=== PATIENT | female | born 1995 | race Caucasian/White ===

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

== ENCOUNTER 2017-01-05 10:00 | Emergency (ER) | payer MEDICAID ==
[2017-01-05 10:05] VITALS: BP 126/69
[2017-01-05] MEDS ORDERED: NORMAL SALINE 1000 ML 1,000 ML IV ONE (10:27)
[2017-01-05 10:53] LABS: ABSOLUTE BASOPHILS # (AUTO) 0.1 10^3/uL (0.0-0.2); ABSOLUTE EOSINOPHILS # (AUTO) 0.2 10^3/uL (0.0-0.6); ABSOLUTE LYMPHOCYTES (AUTO) 1.7 10^3/uL (0.5-4.7); ABSOLUTE MONOCYTES (AUTO) 1.2 10^3/uL (0.1-1.4); ABSOLUTE NEUT (AUTO) 14.1 10^3/uL (1.7-8.2); BASOPHILS % (AUTO) 0.8 % (0-2); EOSINOPHILS % (AUTO) 0.9 % (0-6); HEMATOCRIT 32.3 % (36.0-47.0); HEMOGLOBIN 10.3 g/dL (12.0-15.5); HGB HCT DIFFERENCE -1.4; LYMPHOCYTES % (AUTO) 9.7 % (13-45); MEAN CORPUSCULAR HEMOGLOBIN 22.9 pg (27.0-33.4); MEAN CORPUSCULAR HGB CONC 31.9 g/dL (32.0-36.0); MEAN CORPUSCULAR VOLUME 72 fl (80-97); MONOCYTES % (AUTO) 6.9 % (3-13); RED BLOOD COUNT 4.51 10^6/uL (3.72-5.28); RED CELL DISTRIBUTION WIDTH 18.2 % (11.5-14.0); SEGMENTED NEUTROPHILS % (AUTO) 81.7 % (42-78); WHITE BLOOD COUNT 17.2 10^3/uL (4.0-10.5)
--- NOTE | 2017-01-05 11:00 | ER Document Report ---
ED GI/ - General Chief Complaint: Abdominal Pain Stated Complaint: ABDOMINAL PAIN Time Seen by Provider: 01/05/17 10:21 Mode of Arrival: Ambulatory Information source: Patient Notes: Patient presents complaining of diarrhea and abdominal pain for the past month. Patient states she was recently diagnosed with Crohn's and ulcerative colitis this past month. Patient has seen her primary doctor and GI doctor for this complaint recently. Patient reports nausea with decreased oral intake. Patient denies any vomiting. Patient states she has been having about 5-7 diarrhea stools a day. Patient states she is due to have a colonoscopy in 2 weeks. Patient states that she saw her primary doctor on 12/30/2016 and was prescribed Flagyl and Bentyl, patient states that she does not like her primary doctor and does not trust him that she stopped these medications 2 days ago. Patient states that she ran out of her Percocet and her prednisone about a week ago and that is when her increased pain symptoms started. Patient states she does not keep up with her medications but just takes whatever her mother gives her. TRAVEL OUTSIDE OF THE [place] IN LAST 30 DAYS: No - HPI Patient complains to provider of: Abdominal pain, Diarrhea, Flank pain - off and on. No: Vaginal bleeding, Vaginal discharge, Vomiting Onset: Other - 1 month Timing/Duration: Worse Quality of pain: Sharp Pain Level: 5 Adult Front & Back Diagram: 1 - Abdominal pain Vaginal bleeding (Compared to normal period): None Associated symptoms: Diarrhea, Loss of appetite, Nausea. denies: Dizzy, Dysuria , Fever, Urinary hesitancy, Urinary frequency, Urinary retention, Vomiting Exacerbated by: Denies Relieved by: Denies Similar symptoms previously: Yes Recently seen / treated by doctor: Yes - Related Data Allergies/Adverse Reactions: latex Allergy (Mild, Verified 01/05/17 10:16) Hives methylphenidate [From Concerta] Allergy (Verified 01/05/17 11:42) Penicillins Allergy (Verified 01/05/17 10:16) sulfamethoxazole [From Bactrim] Allergy (Verified 01/05/17 11:42) trimethoprim [From Bactrim] Allergy (Verified 01/05/17 11:42) Past Medical History - General Information source: Patient Last Menstrual Period: 12/20/2016 - Social History Smoking Status: Current Every Day Smoker Chew tobacco use (# tins/day): No Smoking Education Provided: Yes - for at least 3 min Frequency of alcohol use: Occasional Drug Abuse: None 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 denies: Fever, Recent illness EENT: No symptoms reported Cardiovascular: No symptoms reported Respiratory: No symptoms reported. denies: Cough, Short of breath Gastrointestinal: Abdominal pain, Diarrhea, Nausea. denies: Vomiting, Constipation Genitourinary: Flank pain - off and on. denies: Dysuria Female Genitourinary: No symptoms reported. denies: , Vaginal discharge , Vaginal bleeding Musculoskeletal: No symptoms reported Skin: No symptoms reported Hematologic/Lymphatic: No symptoms reported Neurological/Psychological: No symptoms reported Physical Exam - Vital signs Vitals: Temp Pulse Resp BP Pulse Ox 98.1 F 94 H 16 126/69 H 98 01/05/17 10:02 01/05/17 10:02 01/05/17 10:02 01/05/17 10:02 01/05/17 10:02 - General General appearance: Appears well, Alert In distress: None - HEENT Head: Normocephalic, Atraumatic Eyes: Normal Conjunctiva: Normal Nasal: Normal Mouth/Lips: Normal Mucous membranes: Normal Neck: Normal, Supple - Respiratory Respiratory status: No respiratory distress Chest status: Nontender Breath sounds: Normal. No: Rales, Rhonchi, Stridor, Wheezing Chest palpation: Normal - Cardiovascular Rhythm: Regular Heart sounds: S1 appreciated, S2 appreciated Murmur: No - Abdominal Inspection: Normal Distension: No distension Bowel sounds: Normal Tenderness: Tender Organomegaly: No organomegaly Adult front & back diagram: 1 - tenderness with palpation - Genitourinary External exam: Normal Speculum exam: Vaginal discharge Vaginal bleeding: None Bimanuel exam: Normal. No: Cervical motion tender, Adnexal tenderness Notes: RN Emerald as standby - Back Back: Normal, Nontender. No: CVA tenderness - Extremities General upper extremity: Normal inspection, Normal ROM General lower extremity: Normal inspection, Normal ROM - Neurological Neuro grossly intact: Yes Cognition: Normal Rebecca Coma Scale Eye Opening: Spontaneous Rebecca Coma Scale Verbal: Oriented [place] Coma Scale Motor: Obeys Commands Rebecca Coma Scale Total: 15 - Psychological Associated symptoms: Normal affect, Normal mood - Skin Skin Temperature: Warm Skin Moisture: Dry Skin Color: Normal Course - Re-evaluation Re-evalutation: 01/05/17 12:[address] imaging at this time. Patient states she knows that she has an elevated white blood cell count has had an elevated white blood cell count 4 the past month. Patient states that she does not want to continue with the diagnostic evaluation at this time. Patient advised that no narcotic prescription will be written today. Patient advised that she would be given a prescription for Flagyl as well as antibiotic to treat her urinary tract infection. The patient has decided not to proceed with further recommended testing or treatment to determine the cause of her symptoms. The risk and alternatives to the recommendation were discussed the patient voiced understanding. The patient appears clinically to have the capacity to make this decision. The patient was instructed that they could return to the ER at any time to complete the testing or treatment. The patient has chosen to leave the facility against medical advice. The relevant issues have been reviewed and discussed with the patient and family at the bedside. At the time of this assessment there is no indication for involuntary commitment. The patient is alert, oriented, and able to express clearly their reasoning for not wanting to remain in the emergency department for further treatment. The patient is not clinically psychotic, intoxicated, and denies and suicidal ideation. The following recommendations/services were offered and refused: ct imaging The following risks were explained: , permanent disability, loss of function Clinical impression: Patient is competent to make decisions regarding the medical that is being offered. - Vital Signs Vital signs: Temp Pulse Resp BP Pulse Ox 98.1 F 94 H 16 126/69 H 98 01/05/17 10:02 01/05/17 10:02 01/05/17 10:02 01/05/17 10:02 01/05/17 10:02 - Laboratory Result Diagrams: 01/05/17 10:30 01/05/17 10:30 Laboratory results interpreted by me: 01/05/17 01/05/17 01/05/17 10:30 10:30 10:30 WBC 17.2 H Hgb 10.3 L Hct 32.3 L MCV 72 L MCH 22.9 L MCHC 31.9 L RDW 18.2 H Plt Count 643 H Seg Neutrophils % 81.7 H Lymphocytes % 9.7 L Absolute Neutrophils 14.1 H ESR 68 H Carbon Dioxide 21 L BUN 6 L C-Reactive Protein 133.2 H Urine Protein 100 H Urine Ketones TRACE H Urine Blood SMALL H Urine Bilirubin SMALL H Ur Leukocyte Esterase MODERATE H Urine Ascorbic Acid 20 H 01/05/17 12:04 Labs- Entire Visit 01/05/17 01/05/17 01/05/17 10:30 10:30 10:30 WBC 17.2 H RBC 4.51 Hgb 10.3 L Hct 32.3 L MCV 72 L MCH 22.9 L MCHC 31.9 L RDW 18.2 H Plt Count 643 H Seg Neutrophils % 81.7 H Lymphocytes % 9.7 L Monocytes % 6.9 Eosinophils % 0.9 Basophils % 0.8 Absolute Neutrophils 14.1 H Absolute Lymphocytes 1.7 Absolute Monocytes 1.2 Absolute Eosinophils 0.2 Absolute Basophils 0.1 ESR 68 H Sodium 139.6 Potassium 4.1 Chloride 106 Carbon Dioxide 21 L Anion Gap 13 BUN 6 L Creatinine 0.83 Est GFR ( Amer) > 60 Est GFR (Non-Af Amer) > 60 Glucose 86 Calcium 9.8 Total Bilirubin 0.4 Direct Bilirubin 0.4 Indirect Bilirubin Not Reportable Neonat Total Bilirubin Not Reportable AST 11 ALT 18 Alkaline Phosphatase 102 C-Reactive Protein 133.2 H Total Protein 7.7 Albumin 3.7 Lipase 26.2 Serum HCG, Qual NEGATIVE Urine Color Urine Appearance Urine pH Ur Specific [place] Urine Protein Urine Glucose (UA) Urine Ketones Urine Blood Urine Nitrite Urine Bilirubin Urine Urobilinogen Ur Leukocyte Esterase Urine WBC (Auto) Urine RBC (Auto) Squamous Epi Cells Auto U Non-Squamous Epis Auto Urine Mucus (Auto) Urine Ascorbic Acid Bacteria (Wet Prep) Trichomonas (Wet Prep) Vaginal WBC Vaginal Yeast 01/05/17 01/05/17 10:30 11:40 WBC RBC Hgb Hct MCV MCH MCHC RDW Plt Count Seg Neutrophils % Lymphocytes % Monocytes % Eosinophils % Basophils % Absolute Neutrophils Absolute Lymphocytes Absolute Monocytes Absolute Eosinophils Absolute Basophils ESR Sodium Potassium Chloride Carbon Dioxide Anion Gap BUN Creatinine Est GFR ( Amer) Est GFR (Non-Af Amer) Glucose Calcium Total Bilirubin Direct Bilirubin Indirect Bilirubin Neonat Total Bilirubin AST ALT Alkaline Phosphatase C-Reactive Protein Total Protein Albumin Lipase Serum HCG, Qual Urine Color YELLOW Urine Appearance CLOUDY Urine pH 5.0 Ur Specific [place] 1.031 Urine Protein 100 H Urine Glucose (UA) NEGATIVE Urine Ketones TRACE H Urine Blood SMALL H Urine Nitrite NEGATIVE Urine Bilirubin SMALL H Urine Urobilinogen NEGATIVE Ur Leukocyte Esterase MODERATE H Urine WBC (Auto) 36 Urine RBC (Auto) 11 Squamous Epi Cells Auto 42 U Non-Squamous Epis Auto 1 Urine Mucus (Auto) MANY Urine Ascorbic Acid 20 H Bacteria (Wet Prep) 3+ BACTERIA SEEN Trichomonas (Wet Prep) NO TRICHOMONAS SEEN Vaginal WBC RARE WBCS SEEN Vaginal Yeast YEAST SEEN Reviewed labs from patient's previous ER visit Discharge - Discharge Clinical Impression: Bacterial vaginosis UTI (urinary tract infection) Qualifiers: Urinary tract infection type: site unspecified Hematuria presence: with hematuria Qualified Code(s): N39.0 - Urinary tract infection, site not specified Abdominal pain Qualifiers: Abdominal location: unspecified location Qualified Code(s): R10.9 - Unspecified abdominal pain Leukocytosis Qualifiers: Leukocytosis type: unspecified Qualified Code(s): D72.829 - Elevated white blood cell count, unspecified Disposition: AGAINST MEDICAL ADVICE Instructions: Abdominal Pain ([facility]), Nitrofurantoin ([facility]), Urinary Tract Infection ([facility]), Metronidazole ([facility]) Additional Instructions: Return immediately for any new or worsening symptoms, or if you would like to continue your diagnostic evaluation Followup with your primary care provider and third mate, call tomorrow to make a followup appointment Prescriptions: Metronidazole [Flagyl 500 mg Tablet] 500 mg PO BID #14 tablet Nitrofurantoin/Nitrofuran Mac [Macrobid 100 mg Capsule] 100 mg PO BID #10 capsule Forms: Return to Work Referrals: MAY ALY MD [NO LOCAL MD] - Follow up tomorrow
[2017-01-05 11:04] LABS: APPEARANCE,URINE CLOUDY; BILIRUBIN,URINE SMALL (NEGATIVE); GLUCOSE, URINE NEGATIVE (NEGATIVE); KETONES,URINE TRACE mg/dL (NEGATIVE); LEUKOCYTE ESTERASE,URINE MODERATE (NEGATIVE); NITRITE,URINE NEGATIVE (NEGATIVE); PROTEIN,URINE 100 mg/dL (NEGATIVE); URINE SPECIFIC GRAVITY 1.031; UROBILINOGEN,URINE NEGATIVE mg/dL (<2.0)
[2017-01-05 11:11] LABS: ALANINE AMINOTRANSFERASE 18 U/L (5-35); ALBUMIN 3.7 g/dL (3.7-5.6); ALKALINE PHOSPHATASE 102 U/L (50-135); ANION GAP 13 (5-19); ASPARTATE AMINO TRANSFERASE 11 U/L (5-30); BILIRUBIN,DIRECT 0.4 mg/dL (0.0-0.4); BILIRUBIN,TOTAL 0.4 mg/dL (0.2-1.3); BLOOD UREA NITROGEN 6 mg/dL (7-20); CALCIUM 9.8 mg/dL (8.4-10.2); CARBON DIOXIDE 21 mmol/L (22-30); CHLORIDE 106 mmol/L (98-107); CREATININE RESULT 0.83 mg/dL (0.52-1.25); GLUCOSE 86 mg/dL (75-110); LIPASE 26.2 U/L (23-300); POTASSIUM 4.1 mmol/L (3.6-5.0); SODIUM 139.6 mmol/L (137-145); TOTAL PROTEIN 7.7 g/dL (6.3-8.2)
[2017-01-05] MEDS ORDERED: NORMAL SALINE 1000 ML 1,000 ML IV PRN (11:12)
[2017-01-05] MEDS ORDERED: OXYCODONE-ACETAMINOPHEN 5-325 MG TABLET PO ONE (11:20)
[2017-01-05 11:27] LABS: C-REACTIVE PROTEIN 133.2 mg/L (<10.0)
[2017-01-05 11:33] LABS: ERYTHROCYTE SEDIMENTATION RATE 68 mm/hr (0-20)
[2017-01-05 13:24] LABS: CHLAM PCR NOT DETECTED (NOT DETECT)
== END 2017-01-05 13:15 | disposition left against medical advice (07) ==
LOC: ER 10:00
DX: N39.0 Urinary tract infection, site not specified (principal); R31.9 Hematuria, unspecified; K51.90 Ulcerative colitis, unspecified, without complications; T37.3X6A Underdosing of other antiprotozoal drugs, initial encounter; T44.3X6A Underdosing of other parasympatholytics [anticholinergics and antimuscarinics] and spasmolytics, initial encounter; Z91.128 Patient's intentional underdosing of medication regimen for other reason; Z91.14 Patient's other noncompliance with medication regimen; D72.829 Elevated white blood cell count, unspecified; N76.0 Acute vaginitis; B96.89 Other specified bacterial agents as the cause of diseases classified elsewhere; J45.909 Unspecified asthma, uncomplicated; F17.200 Nicotine dependence, unspecified, uncomplicated; Z91.040 Latex allergy status; Z88.0 Allergy status to penicillin; Z88.1 Allergy status to other antibiotic agents; Z88.8 Allergy status to other drugs, medicaments and biological substances
CPT/HCPCS: 99284; 36415; 87086; 87210; 83690; 84703; 85025; 85652; 86140; 87088; 80053; 81001; 87491; 87591; J7030

== ENCOUNTER 2017-01-12 01:13 | Emergency (ER) | payer MEDICAID ==
--- NOTE | 2017-01-12 02:22 | ER Document Report ---
HPI - HPI Pain Level: 3 Notes: Patient is a 21-year-old female who presents to the ED for the 3rd time in the last month for the same complaint. Pt is c/o abdominal pain generalized with n/v /d since her diagnosis of Crohn's and UC approx 1mo ago. Pt states that she was seen by Dr. Herrera (GI) and has an endoscopy/colonoscopy scheduled in 2 weeks. Pt states that she returned today to get out of pain. Pt was eval'd last month and declined the CT scan and signed out AMA. Pt was sent home with flagyl and macrobid per patient for BV and UTI which she is still taking/ finishing. Pt denies any melena, hematochezia, hematemesis. Pt states that she does have a dec appetite with one episode of vomiting today. Pt has not had any acute changes since her last visit. her pain is described as burning, cramping, sharp, dull, and an ache. Pt is still having BM's routinely. Denies any headache, fever, URI, sore throat, chest pain, palpitations, syncope, cough , shortness of breath, wheeze, dyspnea, urinary retention, dysuria, hematuria, vaginal discharge/odor, loss of control of bowel or bladder, numbness/tingling, saddle anesthesia, muscle paralysis/weakness, or rash. + smoking, denies elicit drug use. - ROS Notes: REVIEW OF SYSTEMS: CONSTITUTIONAL : Denies fever, chills, or sweats. Denies recent illness. EENT: Denies eye, ear, throat, or mouth pain or symptoms. Denies nasal or sinus congestion or discharge. Denies throat, tongue, or mouth swelling or difficulty swallowing. CARDIOVASCULAR: Denies chest pain. Denies palpitations or racing or irregular heart beat. Denies ankle edema. RESPIRATORY: Denies cough, cold, or chest congestion. Denies shortness of breath, difficulty breathing, or wheezing. GASTROINTESTINAL: see hpi GENITOURINARY: Denies difficulty urinating, painful urination, burning, frequency, blood in urine, or discharge. FEMALE GENITOURINARY: Denies vaginal bleeding, heavy or abnormal periods, irregular periods. Denies vaginal discharge or odor. MUSCULOSKELETAL: Denies back or neck pain or stiffness. Denies joint pain or swelling. SKIN: Denies rash, lesions or sores. NEUROLOGICAL: Denies confusion or altered mental status. Denies passing out or loss of consciousness. Denies dizziness or lightheadedness. Denies headache. Denies weakness or paralysis or loss of use of either side. Denies problems with gait or speech. Denies sensory loss, numbness, or tingling. ALL OTHER SYSTEMS REVIEWED AND NEGATIVE. Dictation was performed using [employer] voice recognition software - REPRODUCTIVE Reproductive: DENIES: : - DERM Skin Color: [place] Past Medical History - Social History Smoking Status: Current Every Day Smoker Family History: Reviewed & Not Pertinent Pulmonary Medical History: Reports: Hx Asthma Renal/ Medical History: Denies: Hx Peritoneal Dialysis GI Medical History: Reports: Hx Crohn's Disease, Hx Ulcerative Colitis Psychiatric Medical History: Reports: Hx Anxiety, Hx Bipolar Disorder, Hx Depression - anxiety Past Surgical History: Reports: Hx Oral Surgery - wisdom, Hx Tonsillectomy - Immunizations Immunizations up to date: Yes Hx Diphtheria, Pertussis, Tetanus Vaccination: Yes Vertical Provider Document - CONSTITUTIONAL Agree With Documented VS: Yes Notes: PHYSICAL EXAMINATION: GENERAL: Well-appearing, well-nourished and in no acute distress. Pt was visualized smiling and comfortable on the exam table looking at her phone and joking with her bf. HEAD: Atraumatic, normocephalic. EYES: Pupils equal round and reactive to light, extraocular movements intact, sclera anicteric, conjunctiva are normal. ENT: EAC clear b/l. TM's intact b/l without erythema, fluid, or perforation. Nares patent and without discharge. oropharynx clear without exudates. No tonsilar hypertrophy or erythema. Moist mucous membranes. No sinus tenderness. NECK: Normal range of motion, supple without lymphadenopathy. No rigidity/ meningismus. LUNGS: Breath sounds clear to auscultation bilaterally and equal. No wheezes rales or rhonchi. HEART: Regular rate and rhythm without murmurs, rubs, gallops. ABDOMEN: Soft, nondistended abdomen. No guarding, no rebound. No masses appreciated. Normal bowel sounds present. No CVA tenderness bilaterally. + tenderness to the RUQ, epigastrum and lower abd b/l. Musculoskeletal: LE's b/l: FROM to passive/active. Strength 5+/5. Extremities: No cyanosis, clubbing, or edema b/l. Peripheral pulses 2+. Capillary refill less than 3 seconds. NEUROLOGICAL: Normal speech, normal gait. Normal sensory, motor exams PSYCH: Normal mood, normal affect. SKIN: Warm, Dry, normal turgor, no rashes or lesions noted. - INFECTION CONTROL TRAVEL OUTSIDE OF THE [place] IN LAST 30 DAYS: No - RESPIRATORY O2 Sat by Pulse Oximetry: 100 Course - Re-evaluation Re-evalutation: 01/12/17 04:18 Patient is an afebrile, well-hydrated, 21-year-old female who presents the ED with a Crohn's flare. Vitals are stable. PE otherwise unremarkable at this time. CBC with a white count of 17 and mild anemia. CMP showed mild hypokalemia. Urinalysis unremarkable. CT of the abdomen showed bowel wall thickening and evidence of acute Crohn's flare without other acute emergent processes. Low suspicion/risk for acute appendicitis, bowel obstruction, acute cholecystitis, acute cholangitis, perforated diverticulitis, incarcerated hernia , pancreatitis, perforated ulcer, peritonitis, sepsis, pelvic inflammatory disease, ectopic , tubo-ovarian abscess, ovarian torsion, or other systemic emergent condition at this time. Patient is aware that her condition can change from initial presentation and she needs to monitor symptoms closely and seek medical attention if any acute changes. 1L NS given today. KCl 20meq given PO. Toradol 15mg given IV. Pt is already taking bentyl at home. I will place her on a steroid taper dose. Pt is scheduled for a endo/colonoscopy in the next 1-1.5 weeks. Conservative measures otherwise for symptoms. Recheck with your PCM in 2-3 days. Call your GI provider on Friday and let him know about the acute flare. Return to the ED with any worsening/concerning symptoms otherwise as reviewed in discharge. Patient is in agreement. Reviewed case with Dr. Canchola who is in agreement with discharge/plan. - Vital Signs Vital signs: Temp Pulse Resp BP Pulse Ox 98.5 F 104 H 18 123/75 100 01/12/17 01:18 01/12/17 01:18 01/12/17 01:18 01/12/17 01:18 01/12/17 01:18 - Laboratory Result Diagrams: 01/12/17 02:15 01/12/17 02:15 Discharge - Discharge Clinical Impression: Abdominal pain Qualifiers: Abdominal location: generalized Qualified Code(s): R10.84 - Generalized abdominal pain Crohns disease Qualifiers: Gastrointestinal tract location: unspecified location Digestive disease complication type: unspecified complication Qualified Code(s): K50.919 - Crohn' s disease, unspecified, with unspecified complications Condition: Stable Disposition: HOME, SELF-CARE Instructions: Abdominal Pain ([facility]), Antispasmodics ([facility]), Crohn's Disease ([facility]) , Low-Fat Diet ([facility]) Additional Instructions: Maintain adequate fluid/food intake Take medications as directed Monitor for any worsening symptoms Let your GI doctor know that you had/have an active flare up of your Crohn's prior to your scheduled endo/colonoscopy Recheck with your [facility] Spotter in 2-3 days Recheck with your PCM in 2-3 days Return to the ED with any worsening symptoms and/or development of fever, headache, chest pain, palpitations, syncope, shortness of breath, trouble breathing, abdominal pain, n/v/d, blood in stool/urine, or other worsening symptoms that are concerning to you. Prescriptions: Ondansetron [Zofran Odt 4 mg Tablet] 1 - 2 tab PO Q4H PRN #15 tab.rapdis PRN Reason: For Nausea/Vomiting Prednisone [Deltasone 10 mg Tablet] 10 mg PO ASDIR PRN #21 tablet PRN Reason: Forms: Smoking Cessation Education Referrals: MAY HERRERA MD [NO LOCAL MD] - 01/13/17 [facility] [Provider Group] - 01/13/17
[2017-01-12] MEDS ORDERED: NORMAL SALINE 1000 ML 1,000 ML IV ONE (02:23)
[2017-01-12 02:28] LABS: ABSOLUTE BASOPHILS # (AUTO) 0.1 10^3/uL (0.0-0.2); ABSOLUTE EOSINOPHILS # (AUTO) 0.1 10^3/uL (0.0-0.6); ABSOLUTE LYMPHOCYTES (AUTO) 3.3 10^3/uL (0.5-4.7); ABSOLUTE MONOCYTES (AUTO) 1.5 10^3/uL (0.1-1.4); ABSOLUTE NEUT (AUTO) 12.1 10^3/uL (1.7-8.2); BASOPHILS % (AUTO) 0.7 % (0-2); EOSINOPHILS % (AUTO) 0.8 % (0-6); HEMATOCRIT 29.8 % (36.0-47.0); HEMOGLOBIN 9.6 g/dL (12.0-15.5); LYMPHOCYTES % (AUTO) 19.2 % (13-45); MEAN CORPUSCULAR HEMOGLOBIN 22.9 pg (27.0-33.4); MEAN CORPUSCULAR HGB CONC 32.3 g/dL (32.0-36.0); MEAN CORPUSCULAR VOLUME 71 fl (80-97); MONOCYTES % (AUTO) 8.5 % (3-13); RED BLOOD COUNT 4.21 10^6/uL (3.72-5.28); RED CELL DISTRIBUTION WIDTH 17.6 % (11.5-14.0); SEGMENTED NEUTROPHILS % (AUTO) 70.8 % (42-78); WHITE BLOOD COUNT 17.1 10^3/uL (4.0-10.5)
[2017-01-12] MEDS ORDERED: ONDANSETRON HCL INJ/PF 4 MG/2 ML SDV IV ONE (02:31)
[2017-01-12 02:32] LABS: APPEARANCE,URINE CLEAR; BILIRUBIN,URINE NEGATIVE (NEGATIVE); GLUCOSE, URINE NEGATIVE (NEGATIVE); KETONES,URINE 20 mg/dL (NEGATIVE); LEUKOCYTE ESTERASE,URINE SMALL (NEGATIVE); NITRITE,URINE NEGATIVE (NEGATIVE); PROTEIN,URINE 30 mg/dL (NEGATIVE); URINE SPECIFIC GRAVITY 1.021
[2017-01-12] MEDS ORDERED: NORMAL SALINE 1000 ML 1,000 ML IV PRN (02:34)
[2017-01-12 02:38] LABS: ALANINE AMINOTRANSFERASE 23 U/L (5-35); ALBUMIN 3.5 g/dL (3.7-5.6); ALKALINE PHOSPHATASE 102 U/L (50-135); ANION GAP 12 (5-19); ASPARTATE AMINO TRANSFERASE 8 U/L (5-30); BILIRUBIN,DIRECT 0.4 mg/dL (0.0-0.4); BILIRUBIN,TOTAL 0.4 mg/dL (0.2-1.3); BLOOD UREA NITROGEN 6 mg/dL (7-20); CALCIUM 9.1 mg/dL (8.4-10.2); CARBON DIOXIDE 21 mmol/L (22-30); CHLORIDE 105 mmol/L (98-107); CREATININE RESULT 0.72 mg/dL (0.52-1.25); GLUCOSE 89 mg/dL (75-110); LIPASE 46.5 U/L (23-300); POTASSIUM 3.3 mmol/L (3.6-5.0); SODIUM 137.9 mmol/L (137-145); TOTAL PROTEIN 7.5 g/dL (6.3-8.2)
--- NOTE | 2017-01-12 03:49 | RADIOLOGY REPORT (SQ) ---
EXAM DESCRIPTION: CT ABD/PELVIS WITH IV ONLY COMPLETED DATE/TIME: 01/12/2017 3:29 am REASON FOR STUDY: abdominal pain . Nausea, vomiting, diarrhea x1 month, worse x1 week. History of Crohn's and ulcerative colitis. COMPARISON: None. TECHNIQUE: CT scan of the abdomen and pelvis performed using helical scanning technique with dynamic intravenous contrast injection. No oral contrast. Images reviewed with lung, soft tissue, and bone windows. Reconstructed coronal and sagittal MPR images reviewed. Delayed images for evaluation of the urinary system also acquired. All images stored on PACS. All CT scanners at this facility use dose modulation, iterative reconstruction, and/or weight based d osing when appropriate to reduce radiation dose to as low as reasonably achievable (ALARA). [facility]: Dose Right [facility]: CareDose [facility]: Dose Right [facility]: Teradose 4D [facility]: Hastify CONTRAST TYPE AND DOSE: contrast/concentration: Isovue 370.00 mg/ml; Total Contrast Delivered: 76.0 ml; Total Saline Delivered: 51.0 ml RENAL FUNCTION: Creatinine 0.72 RADIATION DOSE: Up-to-date CT equipment and radiation dose reduction techniques were employed. CTDIv ol: 6.0 - 8.3 mGy. DLP: 725 mGy-cm.. LIMITATIONS: None. FINDINGS: LOWER CHEST: No consolidation or pleural effusion. LIVER: Normal size. No dilated ducts. SPLEEN: Normal size. PANCREAS: No significant calcifications. No adjacent inflammation or peripancreatic fluid collections . Pancreatic duct not dilated. GALLBLADDER: Present. ADRENAL GLANDS: No significant masses or asymmetry. RIGHT KIDNEY AND URETER: No solid masses. No significant calcifications. No hydronephrosis or hyd roureter. LEFT KIDNEY AND URETER: No solid masses. No significant calcifications. No hydronephrosis or hydr oureter. AORTA AND VESSELS: No abdominal aortic aneurysm or CT evidence of acute dissection. There is a retro aortic left renal vein. RETROPERITONEUM: No retroperitoneal hemorrhage or masses. BOWEL AND PERITONEAL CAVITY: The stomach is collapsed. No dilated bowel loops. There is wall enhanc ement of the terminal ileum. There is diffuse wall thickening and enhancement of the colon. Enlarge d mesenteric lymph globe in the right lower quadrant measuring up to 14 mm in short axis. APPENDIX: Normal. PELVIS: The urinary bladder is partially distended. The uterus is present. No free fluid. ABDOMINAL WALL: No hernias. BONES: No acute findings. IMPRESSION: Wall enhancement of the terminal ileum with diffuse wall thickening and enhancement of t he colon, suggestive of terminal ileitis and colitis, probably due to active Crohn's disease. Evalua tion with colonoscopy may be worthwhile. Mesenteric adenopathy in the right lower quadrant, may be reactive. TECHNICAL DOCUMENTATION: JOB ID: [id number] OR-64 Quality ID # [id number]: Final reports with documentation of one or more dose reduction techniques (e.g., Au tomated exposure control, adjustment of the mA and/or kV according to patient size, use of iterative reconstruction technique) 2010 [email or web address]- All Rights Reserved
[2017-01-12] MEDS ORDERED: POTASSIUM CHLORIDE 20 MEQ/15 ML UDCUP PO ONE (04:09)
[2017-01-12] MEDS ORDERED: KETOROLAC TROMETHAMINE INJ/PF 30 MG/1 ML SDV IV ONE (04:09)
[2017-01-12] MEDS ORDERED: LORAZEPAM INJ 2 MG/1 ML VIAL IV ONE (04:13)
[2017-01-12 04:53] VITALS: BP 128/72
== END 2017-01-12 04:51 | disposition home or self-care (01) ==
LOC: ER 01:13
DX: K50.919 Crohn's disease, unspecified, with unspecified complications (principal); N39.0 Urinary tract infection, site not specified; N76.0 Acute vaginitis; B96.89 Other specified bacterial agents as the cause of diseases classified elsewhere; D64.9 Anemia, unspecified; E87.6 Hypokalemia; R11.2 Nausea with vomiting, unspecified; R19.7 Diarrhea, unspecified; R10.84 Generalized abdominal pain; R63.0 Anorexia; J45.909 Unspecified asthma, uncomplicated; F17.200 Nicotine dependence, unspecified, uncomplicated; Z79.899 Other long term (current) drug therapy
CPT/HCPCS: 99284; 96361; 96374; 96375; 36415; 83690; 85025; 81025; 80053; 81001; 74177; J1885; J3490; J2405; J7030

== ENCOUNTER 2017-02-09 21:47 | Emergency (ER) | payer MEDICAID ==
[2017-02-09 22:18] LABS: ABSOLUTE BASOPHILS # (AUTO) 0.1 10^3/uL (0.0-0.2); ABSOLUTE EOSINOPHILS # (AUTO) 0.1 10^3/uL (0.0-0.6); ABSOLUTE MONOCYTES (AUTO) 1.1 10^3/uL (0.1-1.4); ABSOLUTE NEUT (AUTO) 9.9 10^3/uL (1.7-8.2); BASOPHILS % (AUTO) 0.8 % (0-2); HEMATOCRIT 33.3 % (36.0-47.0); HEMOGLOBIN 10.9 g/dL (12.0-15.5); HGB HCT DIFFERENCE -0.6; LYMPHOCYTES % (AUTO) 21.1 % (13-45); MEAN CORPUSCULAR HEMOGLOBIN 23.2 pg (27.0-33.4); MEAN CORPUSCULAR HGB CONC 32.7 g/dL (32.0-36.0); MEAN CORPUSCULAR VOLUME 71 fl (80-97); MONOCYTES % (AUTO) 7.4 % (3-13); RED CELL DISTRIBUTION WIDTH 19.9 % (11.5-14.0); SEGMENTED NEUTROPHILS % (AUTO) 69.7 % (42-78); WHITE BLOOD COUNT 14.2 10^3/uL (4.0-10.5)
[2017-02-09 22:27] LABS: ALANINE AMINOTRANSFERASE 16 U/L (5-35); ALBUMIN 3.6 g/dL (3.7-5.6); ALKALINE PHOSPHATASE 94 U/L (50-135); ASPARTATE AMINO TRANSFERASE 12 U/L (5-30); BILIRUBIN,DIRECT 0.3 mg/dL (0.0-0.4); BILIRUBIN,TOTAL 0.3 mg/dL (0.2-1.3); BLOOD UREA NITROGEN 8 mg/dL (7-20); CALCIUM 9.6 mg/dL (8.4-10.2); CARBON DIOXIDE 23 mmol/L (22-30); CREATININE RESULT 0.66 mg/dL (0.52-1.25); GLUCOSE 89 mg/dL (75-110); LIPASE 686.2 U/L (23-300); POTASSIUM 4.1 mmol/L (3.6-5.0); SODIUM 139.8 mmol/L (137-145); TOTAL PROTEIN 7.7 g/dL (6.3-8.2)
[2017-02-09 22:28] LABS: ANION GAP 12 (5-19); CHLORIDE 105 mmol/L (98-107)
[2017-02-09 22:42] LABS: APPEARANCE,URINE CLOUDY; BILIRUBIN,URINE MODERATE (NEGATIVE); CALCIUM OXALATE CRYSTALS,URINE MODERATE /HPF; GLUCOSE, URINE NEGATIVE (NEGATIVE); KETONES,URINE TRACE mg/dL (NEGATIVE); LEUKOCYTE ESTERASE,URINE TRACE (NEGATIVE); NITRITE,URINE NEGATIVE (NEGATIVE); PROTEIN,URINE 30 mg/dL (NEGATIVE); URINE SPECIFIC GRAVITY 1.055; UROBILINOGEN,URINE NEGATIVE mg/dL (<2.0)
[2017-02-09] MEDS ORDERED: ONDANSETRON HCL INJ/PF 4 MG/2 ML SDV IV ONE (23:02)
[2017-02-09] MEDS ORDERED: NORMAL SALINE 1000 ML 1,000 ML IV PRN (23:02)
--- NOTE | 2017-02-09 23:02 | ER Document Report ---
ED GI/ - General Chief Complaint: Abdominal Pain Stated Complaint: ABDOMINAL PAIN Time Seen by Provider: 02/09/17 22:37 Mode of Arrival: Ambulatory Information source: Patient TRAVEL OUTSIDE OF THE [place] IN LAST 30 DAYS: No - HPI Patient complains to provider of: Abdominal pain Onset: Yesterday Timing/Duration: Gradual, Persistent, Worse Quality of pain: Achy Severity at maximum: Moderate Location: Other - Diffuse Associated symptoms: Diarrhea, Nausea, Vomiting Similar symptoms previously: Yes Recently seen / treated by doctor: Yes Notes: 02/10/17 05:07 Patient is a 21-year-old female presenting to the emergency room complaining of nausea, vomiting and diarrhea, states her pain started yesterday after she ran out of her pain medication which is oxycodone 5 mg, she reports a recent diagnosis of Crohn's disease after having an upper and lower endoscopy by Dr. Herrera of [facility], she reports that she is supposed to be started on Humira Friday for this, and had pain medication until she follows up with her credit card control clerk on Friday unfortunately she ran out of it yesterday which is when her pain began - Related Data Allergies/Adverse Reactions: latex Allergy (Mild, Verified 02/09/17 21:49) Hives methylphenidate [From Concerta] Allergy (Verified 02/09/17 21:49) Penicillins Allergy (Verified 02/09/17 21:49) sulfamethoxazole [From Bactrim] Allergy (Verified 02/09/17 21:49) trimethoprim [From Bactrim] Allergy (Verified 02/09/17 21:49) Past Medical History - General Information source: Patient - Social History Smoking Status: Current Every Day Smoker Family History: Reviewed & Not Pertinent Patient has suicidal ideation: No Patient has homicidal ideation: No Pulmonary Medical History: Reports: Hx Asthma Renal/ Medical History: Denies: Hx Peritoneal Dialysis GI Medical History: Reports: Hx Crohn's Disease, Hx Ulcerative Colitis Psychiatric Medical History: Reports: Hx Anxiety, Hx Bipolar Disorder, Hx Depression - anxiety Past Surgical History: Reports: Hx Oral Surgery - wisdom, Hx Tonsillectomy - Immunizations Immunizations up to date: Yes Hx Diphtheria, Pertussis, Tetanus Vaccination: Yes Review of Systems - Review of Systems Constitutional: No symptoms reported EENT: No symptoms reported Cardiovascular: No symptoms reported Respiratory: No symptoms reported Gastrointestinal: See HPI Genitourinary: No symptoms reported Female Genitourinary: No symptoms reported Musculoskeletal: No symptoms reported Skin: No symptoms reported Hematologic/Lymphatic: No symptoms reported Neurological/Psychological: No symptoms reported -: Yes All other systems reviewed and negative Physical Exam - Vital signs Vitals: Temp Pulse BP Pulse Ox 98.1 F 103 H 107/67 100 02/09/17 21:52 02/09/17 21:52 02/09/17 21:52 02/09/17 21:52 Interpretation: Tachycardic - General General appearance: Appears well, Alert - HEENT Head: Normocephalic, Atraumatic Eyes: Normal Pupils: PERRL - Respiratory Respiratory status: No respiratory distress Chest status: Nontender Breath sounds: Normal Chest palpation: Normal - Cardiovascular Rhythm: Regular Heart sounds: Normal auscultation Murmur: No - Abdominal Inspection: Normal Distension: No distension Bowel sounds: Normal Tenderness: Tender - Mild diffuse tenderness Organomegaly: No organomegaly - Back Back: Normal, Nontender - Extremities General upper extremity: Normal inspection, Nontender, Normal color, Normal ROM , Normal temperature General lower extremity: Normal inspection, Nontender, Normal color, Normal ROM , Normal temperature, Normal weight bearing. No: Erik's sign - Neurological Neuro grossly intact: Yes Cognition: Normal Orientation: AAOx4 [place] Coma Scale Eye Opening: Spontaneous [place] Coma Scale Verbal: Oriented Rebecca Coma Scale Motor: Obeys Commands [place] Coma Scale Total: 15 Speech: Normal Motor strength normal: LUE, RUE, LLE, RLE Sensory: Normal - Psychological Associated symptoms: Normal affect, Normal mood - Skin Skin Temperature: Warm Skin Moisture: Dry Skin Color: Normal Course - Re-evaluation Re-evalutation: 02/10/17 00:32 Patient resting comfortably, reports feeling much better and ready to go home, lab findings were discussed with her at bedside which show mild leukocytosis, with a lipase that is slightly elevated as well, patient was provided with IV fluids, nausea meds and 1 dose of pain meds in the emergency room at which time she reported feeling much better and ready to go home, she was given a prescription for nausea medication and pain medication and advised to follow-up with her credit card control clerk on Friday as scheduled, or return if symptoms worsen, patient acknowledges understanding and agreement with this plan 02/10/17 05:09 - Vital Signs Vital signs: Temp Pulse Resp BP Pulse Ox 98.4 F 96 H 20 110/70 100 02/10/17 00:40 02/10/17 00:40 02/10/17 02:07 02/10/17 00:40 02/10/17 00:40 - Laboratory Result Diagrams: 02/09/17 22:05 02/09/17 22:05 Laboratory results interpreted by me: 02/09/17 02/09/17 02/09/17 22:05 22:05 22:20 WBC 14.2 H Hgb 10.9 L Hct 33.3 L MCV 71 L MCH 23.2 L RDW 19.9 H Plt Count 723 H Absolute Neutrophils 9.9 H Albumin 3.6 L Lipase 686.2 H Urine Protein 30 H Urine Ketones TRACE H Urine Bilirubin MODERATE H Ur Leukocyte Esterase TRACE H Urine Ascorbic Acid 40 H Discharge - Discharge Clinical Impression: Nausea and vomiting Qualifiers: Vomiting type: unspecified Vomiting Intractability: non-intractable Qualified Code(s): R11.2 - Nausea with vomiting, unspecified Condition: Stable Disposition: HOME, SELF-CARE Instructions: Abdominal Pain ([facility]), Vomiting ([facility]) Additional Instructions: Follow up with your primary care provider in one to 2 days. Return to the emergency room immediately if symptoms worsen or any additional concerns. Prescriptions: Ondansetron HCl [Zofran 4 mg Tablet] 1 - 2 tab PO Q4H PRN #30 tablet PRN Reason: Oxycodone HCl/Acetaminophen [Percocet 5-325 mg Tablet] 1 - 2 tab PO ASDIR PRN # 20 tablet PRN Reason: Referrals: ASHLEY CHRISTENSEN MD [Primary Care Provider] - Follow up as needed
[2017-02-09] MEDS ORDERED: MORPHINE SULFATE 10 MG/ML INJ IV ONE (23:41)
[2017-02-10 01:05] VITALS: BP 110/70
== END 2017-02-10 00:40 | disposition home or self-care (01) ==
LOC: ER 21:47
DX: R11.2 Nausea with vomiting, unspecified (principal); R10.9 Unspecified abdominal pain; R19.7 Diarrhea, unspecified; Z79.899 Other long term (current) drug therapy; K50.90 Crohn's disease, unspecified, without complications; F17.200 Nicotine dependence, unspecified, uncomplicated
CPT/HCPCS: 99284; 96374; 96375; 36415; 83690; 85025; 81025; 80053; 81001; J2270; J2405

== ENCOUNTER 2017-02-14 19:45 | Emergency (ER) | payer MEDICAID ==
[2017-02-14] MEDS ORDERED: KETOROLAC TROMETHAMINE INJ/PF 30 MG/1 ML SDV IV ONE (20:14)
[2017-02-14] MEDS ORDERED: MORPHINE SULFATE 10 MG/ML INJ IV PRN (20:14)
[2017-02-14] MEDS ORDERED: METHYLPREDNISOLONE INJ 125 MG/2 ML SDV IV ONE (20:14)
[2017-02-14] MEDS ORDERED: NORMAL SALINE 1000 ML 1,000 ML IV ONE (20:15)
[2017-02-14 20:26] LABS: APPEARANCE,URINE CLOUDY; BILIRUBIN,URINE MODERATE (NEGATIVE); GLUCOSE, URINE NEGATIVE (NEGATIVE); KETONES,URINE TRACE mg/dL (NEGATIVE); LEUKOCYTE ESTERASE,URINE NEGATIVE (NEGATIVE); NITRITE,URINE NEGATIVE (NEGATIVE); PROTEIN,URINE 100 mg/dL (NEGATIVE); URINE SPECIFIC GRAVITY 1.044
[2017-02-14] MEDS ORDERED: ALBUTEROL SULFATE HFA (90 MCG/PUFF) 8 GM MDI (1 MDI/ER DISP) IH PRN (20:32)
--- NOTE | 2017-02-14 20:33 | ER Document Report ---
ED General - General Chief Complaint: Abdominal Pain Stated Complaint: ABDOMINAL PAIN Time Seen by Provider: 02/14/17 20:08 Notes: Patient is a 21-year-old female with a past medical history of recently diagnosed Crohn's disease who presents with ongoing abdominal pain, nausea, vomiting and generalized fatigue. She did have an endoscopy that confirmed the diagnosis of Crohn's disease and is currently waiting to be started on Humira. She was recently seen in the emergency room for similar presentation and was given Percocet at that time for pain control which she said moderately improves her abdominal pain. Does describe the abdominal pain as a generalized, cramping , continuous pain. Eating or drinking worsens the pain. Nothing is new or different about her symptoms today other than that she is currently out of pain medications and feels that she is also become dehydrated. TRAVEL OUTSIDE OF THE [place] IN LAST 30 DAYS: No - Related Data Allergies/Adverse Reactions: latex Allergy (Mild, Verified 02/14/17 19:51) Hives methylphenidate [From Concerta] Allergy (Verified 02/14/17 19:51) Penicillins Allergy (Verified 02/14/17 19:51) sulfamethoxazole [From Bactrim] Allergy (Verified 02/14/17 19:51) trimethoprim [From Bactrim] Allergy (Verified 02/14/17 19:51) Past Medical History - General Information source: Patient - Social History Smoking Status: Never Smoker Frequency of alcohol use: None Drug Abuse: None Lives with: Parents Family History: Reviewed & Not Pertinent Pulmonary Medical History: Reports: Hx Asthma Renal/ Medical History: Denies: Hx Peritoneal Dialysis GI Medical History: Reports: Hx Crohn's Disease, Hx Ulcerative Colitis Psychiatric Medical History: Reports: Hx Anxiety, Hx Bipolar Disorder, Hx Depression - anxiety Past Surgical History: Reports: Hx Oral Surgery - wisdom, Hx Tonsillectomy - Immunizations Immunizations up to date: Yes Hx Diphtheria, Pertussis, Tetanus Vaccination: Yes Review of Systems - Review of Systems Notes: Constitutional: Negative for fever. HENT: Negative for sore throat. Eyes: Negative for visual changes. Cardiovascular: Negative for chest pain. Respiratory: Negative for shortness of breath. Gastrointestinal: Positive for abdominal pain and vomiting Genitourinary: Negative for dysuria. Musculoskeletal: Negative for back pain. Skin: Negative for rash. Neurological: Negative for headaches, weakness or numbness. 10 point ROS negative except as marked above and in HPI. Physical Exam - Vital signs Vitals: Temp Pulse Resp BP Pulse Ox 98.5 F 112 H 22 109/66 99 02/14/17 19:52 02/14/17 19:52 02/14/17 19:52 02/14/17 19:52 02/14/17 19:52 Interpretation: Tachycardic Notes: PHYSICAL EXAMINATION: GENERAL: Well-appearing, well-nourished and in no acute distress. HEAD: Atraumatic, normocephalic. EYES: Pupils equal round and reactive to light, extraocular movements intact, sclera anicteric, conjunctiva are normal. ENT: nares patent, oropharynx clear without exudates. Moderately dry mucous membranes. NECK: Normal range of motion, supple without lymphadenopathy LUNGS: Breath sounds clear to auscultation bilaterally and equal. No wheezes rales or rhonchi. HEART: Regular rate and rhythm without murmurs ABDOMEN: Soft, nontender, normoactive bowel sounds. No guarding, no rebound. No masses appreciated. EXTREMITIES: Normal range of motion, no pitting or edema. No cyanosis. NEUROLOGICAL: No focal neurological deficits. Moves all extremities spontaneously and on command. PSYCH: Normal mood, normal affect. SKIN: Warm, Dry, normal turgor, no rashes or lesions noted. Course - Re-evaluation Re-evalutation: 02/14/17 20:32 Patient presents with ongoing generalized abdominal pain with associated anorexia and vomiting. She was recently diagnosed with acute Crohn's disease and is currently following with a GI physician waiting for a prior authorization for [facility] to be completed. She has received steroids in the past without any improvement of her symptoms. She does appear clinically dehydrated on examination but otherwise is overall well in appearance. No focal abdominal tenderness on exam. No rebound or guarding. I suspect ongoing colitis secondary to Crohn's disease. Will check basic laboratories as patient has had clinically significant dehydration in the past. Will provide pain control, IV fluids and reassess. 02/14/17 22:12 Patient's laboratories are unremarkable with exception of mild concentration of the urine. She has been noted by nursing staff to be eating [employer] despite her complaints of nausea and abdominal pain. She is planning on her cell phone and appears in \no distress as she did at time of presentation. She is received IV fluids. She will receive a very limited number of pain medications as I do not believe undergoing repeated narcotic prescriptions as appropriate. At this time will discharge with return precautions and follow-up recommendations. Verbal discharge instructions given a the bedside and opportunity for questions given. Medication warnings reviewed. Patient is in agreement with this plan and has verbalized understanding of return precautions and the need for primary care follow-up in the next 24-72 hours. - Vital Signs Vital signs: Temp Pulse Resp BP Pulse Ox 98.5 F 112 H 24 109/66 100 02/14/17 19:52 02/14/17 19:52 02/14/17 21:21 02/14/17 19:52 02/14/17 21:21 - Laboratory Result Diagrams: 02/14/17 21:08 02/14/17 21:08 Laboratory results interpreted by me: 02/14/17 02/14/17 02/14/17 20:01 21:08 21:08 WBC 12.9 H Hgb 9.3 L Hct 29.4 L MCV 72 L MCH 22.6 L MCHC 31.6 L RDW 19.5 H Plt Count 605 H Absolute Neutrophils 9.8 H Albumin 3.2 L Urine Protein 100 H Urine Ketones TRACE H Urine Blood SMALL H Urine Bilirubin MODERATE H Urine Urobilinogen 2.0 H Urine Ascorbic Acid 40 H Discharge - Discharge Clinical Impression: Crohns disease Qualifiers: Gastrointestinal tract location: unspecified location Digestive disease complication type: unspecified complication Qualified Code(s): K50.919 - Crohn' s disease, unspecified, with unspecified complications Abdominal pain Qualifiers: Abdominal location: generalized Qualified Code(s): R10.84 - Generalized abdominal pain Condition: Good Disposition: HOME, SELF-CARE Additional Instructions: Your labs are normal today. You were able to eat fast food here in the emergency department. Please continue to follow with your GI physician regarding chronic management of your Crohn's disease. You will also need to follow with your GI doctor if you continue to require pain medications. Please be very cautious about continued use of narcotic pain medications as these are highly addicting. Return if you develop persistent vomiting with inability to keep anything down for greater than 12 hours, pass out, have worsening pain, develop a fever greater than 101F, or have any other symptoms that are worrisome to you.
[2017-02-14 21:37] LABS: ABSOLUTE BASOPHILS # (AUTO) 0.1 10^3/uL (0.0-0.2); ABSOLUTE EOSINOPHILS # (AUTO) 0.1 10^3/uL (0.0-0.6); ABSOLUTE LYMPHOCYTES (AUTO) 1.8 10^3/uL (0.5-4.7); ABSOLUTE MONOCYTES (AUTO) 1.1 10^3/uL (0.1-1.4); ABSOLUTE NEUT (AUTO) 9.8 10^3/uL (1.7-8.2); BASOPHILS % (AUTO) 0.7 % (0-2); EOSINOPHILS % (AUTO) 0.6 % (0-6); HEMATOCRIT 29.4 % (36.0-47.0); HEMOGLOBIN 9.3 g/dL (12.0-15.5); HGB HCT DIFFERENCE -1.5; LYMPHOCYTES % (AUTO) 14.3 % (13-45); MEAN CORPUSCULAR HEMOGLOBIN 22.6 pg (27.0-33.4); MEAN CORPUSCULAR HGB CONC 31.6 g/dL (32.0-36.0); MEAN CORPUSCULAR VOLUME 72 fl (80-97); MONOCYTES % (AUTO) 8.3 % (3-13); RED BLOOD COUNT 4.11 10^6/uL (3.72-5.28); RED CELL DISTRIBUTION WIDTH 19.5 % (11.5-14.0); SEGMENTED NEUTROPHILS % (AUTO) 76.1 % (42-78); WHITE BLOOD COUNT 12.9 10^3/uL (4.0-10.5)
[2017-02-14 21:51] LABS: ALANINE AMINOTRANSFERASE 19 U/L (5-35); ALBUMIN 3.2 g/dL (3.7-5.6); ALKALINE PHOSPHATASE 98 U/L (50-135); ANION GAP 11 (5-19); ASPARTATE AMINO TRANSFERASE 11 U/L (5-30); BILIRUBIN,DIRECT 0.2 mg/dL (0.0-0.4); BILIRUBIN,TOTAL 0.2 mg/dL (0.2-1.3); BLOOD UREA NITROGEN 8 mg/dL (7-20); CARBON DIOXIDE 23 mmol/L (22-30); CHLORIDE 106 mmol/L (98-107); CREATININE RESULT 0.69 mg/dL (0.52-1.25); GLUCOSE 82 mg/dL (75-110); LIPASE 180.9 U/L (23-300); POTASSIUM 4.1 mmol/L (3.6-5.0); SODIUM 139.7 mmol/L (137-145); TOTAL PROTEIN 6.9 g/dL (6.3-8.2)
[2017-02-14] MEDS ORDERED: HYDROCODONE/ACETAMINOPHEN 5-325 MG 6 TAB/DSPK PO PRN (22:12)
[2017-02-14 23:06] VITALS: BP 103/73
== END 2017-02-14 23:06 | disposition home or self-care (01) ==
LOC: ER 19:45
DX: K50.919 Crohn's disease, unspecified, with unspecified complications (principal); R10.84 Generalized abdominal pain; R53.83 Other fatigue; R11.2 Nausea with vomiting, unspecified; J45.909 Unspecified asthma, uncomplicated; R63.0 Anorexia; Z91.040 Latex allergy status; Z88.0 Allergy status to penicillin; Z88.1 Allergy status to other antibiotic agents; Z88.8 Allergy status to other drugs, medicaments and biological substances
CPT/HCPCS: 99284; 96361; 96374; 96375; 36415; 83690; 85025; 81025; 80053; 81001; J1885; J2270; J7030; J3490

== ENCOUNTER 2017-04-11 22:43 | Emergency (ER) | payer MEDICAID, OTHER ==
--- NOTE | 2017-04-12 01:24 | ER Document Report ---
ED General - General Chief Complaint: Sore Throat Stated Complaint: SORE THROAT Time Seen by Provider: 04/11/17 23:34 Notes: Patient is a 21-year-old female presents with complaint of a sore throat. Patient says she has had sore throat for several days. She does not have a thermometer at home but she thinks she may have had a fever at home. She has no fever here triage. She says it hurts to swallow. She says some congestion. Some cough. She also mentions that she has some abdominal pain. She says her abdominal pain is chronic and unchanged from her typical dental pain she has her Crohn's. She is on Humira. She is not currently on steroids. She is followed by GI physician in [place]. She denies any blood in her stool. No vomiting. No other complaints at this time. TRAVEL OUTSIDE OF THE [place].S[place] IN LAST 30 DAYS: No - Related Data Allergies/Adverse Reactions: latex Allergy (Mild, Verified 03/31/17 15:18) Hives methylphenidate [From Concerta] Allergy (Verified 03/31/17 15:18) Penicillins Allergy (Verified 03/31/17 15:18) sulfamethoxazole [From Bactrim] Allergy (Verified 03/31/17 15:18) trimethoprim [From Bactrim] Allergy (Verified 03/31/17 15:18) Past Medical History - Social History Smoking Status: Current Every Day Smoker Chew tobacco use (# tins/day): No Frequency of alcohol use: Occasional Drug Abuse: None Family History: Reviewed & Not Pertinent Patient has suicidal ideation: No Patient has homicidal ideation: No Pulmonary Medical History: Reports: Hx Asthma Renal/ Medical History: Denies: Hx Peritoneal Dialysis GI Medical History: Reports: Hx Crohn's Disease, Hx Ulcerative Colitis Psychiatric Medical History: Reports: Hx Anxiety, Hx Bipolar Disorder, Hx Depression - anxiety Past Surgical History: Reports: Hx Oral Surgery - wisdom, Hx Tonsillectomy - Immunizations Immunizations up to date: Yes Hx Diphtheria, Pertussis, Tetanus Vaccination: Yes Review of Systems - Review of Systems Notes: My Normal Review Basic REVIEW OF SYSTEMS: CONSTITUTIONAL : Subjective Fevers EENT: Sore Throat. Cough. CARDIOVASCULAR: Denies chest pain. RESPIRATORY: Cough. No shortness of breath. GASTROINTESTINAL: Denies abdominal pain. Denies nausea, vomiting, or diarrhea. Denies constipation. Last BM: MUSCULOSKELETAL: Denies neck or back pain or joint pain or swelling. SKIN: Denies rash or skin lesions. NEUROLOGICAL: Denies altered mental status or loss of consciousness. Denies headache. Denies weakness or paralysis or loss of use of either side. Denies problems with gait or speech. Denies sensory or motor loss. ALL OTHER SYSTEMS REVIEWED AND NEGATIVE. Physical Exam - Vital signs Vitals: Temp Pulse Resp BP Pulse Ox 98.6 F 95 H 18 122/70 99 04/11/17 22:52 04/11/17 22:52 04/11/17 22:52 04/11/17 22:52 04/11/17 22:52 - Notes Notes: General Appearance: Well nourished, alert, cooperative, no acute distress, no obvious discomfort. Vitals: reviewed, See vital signs table. Head: no swelling or tenderness to the head Eyes: PERRL, EOMI, Conjuctiva clear Mouth: No decreasd moisture Throat: No tonsillar inflammation, No airway obstruction, Lungs: No wheezing, No rales, No rhonci, No accessory muscle use, good air exchange bilaterally. Heart: Normal rate, Regular rythm, No murmur, no rub Abdomen: Normal BS, soft, No rigidity, mild abdominal tenderness to palpation, No guarding, no rebound, no abdominal masses, no organomegaly Extremities: strength 5/5 in all extremities, good pulses in all extremities, no swelling or tenderness in the extremities, no edema. Skin: warm, dry, appropriate color, no rash Neuro: speech clear, oriented x 3, normal affect, responds appropriately to questions. Course - Re-evaluation Re-evalutation: 04/12/17 06:45 Patient will be discharged home with Magic mouthwash. Her abdominal exam is very benign. She does not need any further intervention at times as far as her Crohn's concern. She says this is just like her typical chronic Crohn's pain in no different. She has had no blood in her stool. She has no fever here. I encouraged her return to ER immediately if she has worsening pain, bloody stool , fevers, vomiting, or she feels unwell. Patient agrees with plan will be discharged home. Dictation of this chart was performed using voice recognition software; therefore, there may be some unintended grammatical errors. - Vital Signs Vital signs: Temp Pulse Resp BP Pulse Ox 97.9 F 82 19 106/43 L 100 04/12/17 01:47 04/12/17 01:47 04/12/17 01:47 04/12/17 01:47 04/12/17 01:47 Discharge - Discharge Clinical Impression: Sore throat Abdominal pain Qualifiers: Abdominal location: generalized Qualified Code(s): R10.84 - Generalized abdominal pain Condition: Good Disposition: HOME, SELF-CARE Additional Instructions: Please take the medications as prescribed for help with your symptoms. PLease buy a thermometer so you can check your temp. Please return to the ER if you have recurrent fevers not responding to Tylenol. Please return to the ER immediately if you have difficulty breathing, recurrent fevers, or if you feel unwell. Prescriptions: Nystatin/Dexameth/Diphen [Magic Mouthwash ([facility] Formula) Susp] 5 ml PO QID #120 ml Forms: Return to Work Referrals: JACINTO DO, [facility] [Primary Care Provider] - Follow up in 3-5 days
[2017-04-12 01:47] VITALS: BP 106/43
== END 2017-04-12 01:47 | disposition home or self-care (01) ==
LOC: ER 22:43
DX: J02.9 Acute pharyngitis, unspecified (principal); R10.84 Generalized abdominal pain; R09.81 Nasal congestion; R05 Cough; K08.89 Other specified disorders of teeth and supporting structures; K50.90 Crohn's disease, unspecified, without complications; Z79.01 Long term (current) use of anticoagulants; F17.200 Nicotine dependence, unspecified, uncomplicated
CPT/HCPCS: 87070; 87880; 99283

== ENCOUNTER 2017-06-23 22:45 | Emergency (ER) | payer MEDICAID ==
[2017-06-23 23:37] LABS: ABSOLUTE BASOPHILS # (AUTO) 0.1 10^3/uL (0.0-0.2); ABSOLUTE EOSINOPHILS # (AUTO) 0.1 10^3/uL (0.0-0.6); ABSOLUTE LYMPHOCYTES (AUTO) 3.2 10^3/uL (0.5-4.7); ABSOLUTE MONOCYTES (AUTO) 0.8 10^3/uL (0.1-1.4); ABSOLUTE NEUT (AUTO) 5.2 10^3/uL (1.7-8.2); BASOPHILS % (AUTO) 0.8 % (0-2); EOSINOPHILS % (AUTO) 0.9 % (0-6); HEMATOCRIT 30.2 % (36.0-47.0); HEMOGLOBIN 9.7 g/dL (12.0-15.5); LYMPHOCYTES % (AUTO) 33.9 % (13-45); MEAN CORPUSCULAR HEMOGLOBIN 21.9 pg (27.0-33.4); MEAN CORPUSCULAR HGB CONC 32.3 g/dL (32.0-36.0); MEAN CORPUSCULAR VOLUME 68 fl (80-97); MONOCYTES % (AUTO) 8.6 % (3-13); PLATELET COUNT 417 10^3/uL (150-450); RED BLOOD COUNT 4.45 10^6/uL (3.72-5.28); RED CELL DISTRIBUTION WIDTH 17.7 % (11.5-14.0); SEGMENTED NEUTROPHILS % (AUTO) 55.8 % (42-78); TOTAL CELLS COUNTED % (AUTO) 100 %; WHITE BLOOD COUNT 9.4 10^3/uL (4.0-10.5)
[2017-06-23 23:42] LABS: ALANINE AMINOTRANSFERASE 19 U/L (9-52); ALBUMIN 4.4 g/dL (3.5-5.0); ALKALINE PHOSPHATASE 75 U/L (38-126); ANION GAP 14 (5-19); ASPARTATE AMINO TRANSFERASE 15 U/L (14-36); BLOOD UREA NITROGEN 9 mg/dL (7-20); CALCIUM 9.4 mg/dL (8.4-10.2); CARBON DIOXIDE 21 mmol/L (22-30); CHLORIDE 108 mmol/L (98-107); GLUCOSE 113 mg/dL (75-110); SODIUM 142.8 mmol/L (137-145); TOTAL PROTEIN 7.6 g/dL (6.3-8.2)
[2017-06-23 23:43] LABS: ACETAMINOPHEN < 10 ug/mL (10-30); ALCOHOL < 10 mg/dL (NONE DETECTED); BILIRUBIN,TOTAL < 0.1 mg/dL (0.2-1.3); SALICYLATE < 1.0 mg/dL (2.0-20.0)
[2017-06-24 01:08] LABS: APPEARANCE,URINE SLIGHTLY-CLOUDY; BILIRUBIN,URINE NEGATIVE (NEGATIVE); COLOR,URINE YELLOW; GLUCOSE, URINE NEGATIVE (NEGATIVE); KETONES,URINE NEGATIVE (NEGATIVE); LEUKOCYTE ESTERASE,URINE SMALL (NEGATIVE); NITRITE,URINE NEGATIVE (NEGATIVE); PROTEIN,URINE 30 mg/dL (NEGATIVE); URINE SPECIFIC GRAVITY 1.025; UROBILINOGEN,URINE NEGATIVE mg/dL (<2.0)
[2017-06-24 01:16] LABS: URINE AMPHETAMINES SCREEN NEGATIVE; URINE BARBITURATES SCREEN NEGATIVE; URINE BENZODIAZEPINES SCREEN NEGATIVE; URINE COCAINE SCREEN NEGATIVE; URINE MARIJUANA (THC) SCREEN NEGATIVE; URINE METHADONE SCREEN NEGATIVE; URINE PHENCYCLIDINE SCREEN NEGATIVE
--- NOTE | 2017-06-24 01:42 | ER Document Report ---
ED General - General Chief Complaint: Psych Problem Stated Complaint: IVC Time Seen by Provider: 06/23/17 23:06 Cannot obtain history due to: Altered mental status Notes: Patient is a 22-year-old female with a past medical history of Crohn's disease, bipolar disorder, currently off all psychiatric medications who presents on involuntary commitment in the custody of police for apparently becoming increasingly agitated and combative at home. Patient is making threats towards others and also threatening to harm herself per IVC paperwork. She has refused to take all medications. The patient herself is a very poor historian, obviously responding to internal stimuli, rapidly oscillating between crying and being very happy. She states repeatedly that she was just trying to sit in her room and talk to God. She states frequently "I didn't know that other people could hear me talking to God." TRAVEL OUTSIDE OF THE [place] IN LAST 30 DAYS: No - Related Data Allergies/Adverse Reactions: latex Allergy (Mild, Verified 03/31/17 15:18) Hives methylphenidate [From Concerta] Allergy (Verified 03/31/17 15:18) Penicillins Allergy (Verified 03/31/17 15:18) sulfamethoxazole [From Bactrim] Allergy (Verified 03/31/17 15:18) trimethoprim [From Bactrim] Allergy (Verified 03/31/17 15:18) Past Medical History - General Information source: Patient, [facility] Records - Social History Smoking Status: Never Smoker Frequency of alcohol use: None Drug Abuse: None Lives with: Parents Family History: Reviewed & Not Pertinent Patient has suicidal ideation: Yes Patient has homicidal ideation: Yes Pulmonary Medical History: Reports: Hx Asthma Renal/ Medical History: Denies: Hx Peritoneal Dialysis GI Medical History: Reports: Hx Crohn's Disease, Hx Ulcerative Colitis Psychiatric Medical History: Reports: Hx Anxiety, Hx Bipolar Disorder, Hx Depression - anxiety Past Surgical History: Reports: Hx Oral Surgery - wisdom, Hx Tonsillectomy - Immunizations Immunizations up to date: Yes Hx Diphtheria, Pertussis, Tetanus Vaccination: Yes Review of Systems - Review of Systems Notes: Constitutional: Negative for fever. HENT: Negative for sore throat. Eyes: Negative for visual changes. Cardiovascular: Negative for chest pain. Respiratory: Negative for shortness of breath. Gastrointestinal: Negative for abdominal pain, vomiting or diarrhea. Genitourinary: Negative for dysuria. Musculoskeletal: Negative for back pain. Skin: Negative for rash. Neurological: Negative for headaches, weakness or numbness. 10 point ROS negative except as marked above and in HPI. Physical Exam - Vital signs Vitals: Temp Pulse Resp BP Pulse Ox 98.5 F 128 H 22 H 118/89 H 98 06/23/17 22:55 06/23/17 22:55 06/23/17 22:55 06/23/17 22:55 06/23/17 22:55 Interpretation: Tachycardic Notes: PHYSICAL EXAMINATION: GENERAL: Somewhat anxious, in no distress HEAD: Atraumatic, normocephalic. EYES: Pupils equal round and reactive to light, extraocular movements intact, sclera anicteric, conjunctiva are normal. ENT: nares patent, oropharynx clear without exudates. Moist mucous membranes. NECK: Normal range of motion, supple without lymphadenopathy LUNGS: Breath sounds clear to auscultation bilaterally and equal. No wheezes rales or rhonchi. HEART: Regular rate and rhythm without murmurs ABDOMEN: Soft, nontender, normoactive bowel sounds. No guarding, no rebound. No masses appreciated. EXTREMITIES: Normal range of motion, no pitting or edema. No cyanosis. NEUROLOGICAL: No focal neurological deficits. Moves all extremities spontaneously and on command. PSYCH: Rapidly oscillating mood from smiling to tearful and span of several seconds. Appears to be responding to internal stimuli. Pressured, rapid speech. SKIN: Warm, Dry, normal turgor, no rashes or lesions noted. Course - Re-evaluation Re-evalutation: 06/24/17 01:40 Patient presents with pressured speech, appears to respond spine to internal stimuli, hypersensitive to auditory stimulation. She is reciting Bible versus, has tangential thought processes. Denies all planes listed in IVC. Patient does appear acutely psychotic, and obvious ongoing danger to herself and others. Medical screening labs unremarkable. Will plan for psychiatric evaluation and disposition in the morning. - Vital Signs Vital signs: Temp Pulse Resp BP Pulse Ox 98.5 F 128 H 22 H 118/89 H 98 06/23/17 22:55 06/23/17 22:55 06/23/17 22:55 06/23/17 22:55 06/23/17 22:55 - Laboratory Result Diagrams: 06/23/17 23:14 06/23/17 23:14 Laboratory results interpreted by me: 06/23/17 06/23/17 06/23/17 23:14 23:14 23:14 Hgb 9.7 L Hct 30.2 L MCV 68 L MCH 21.9 L RDW 17.7 H Chloride 108 H Carbon Dioxide 21 L Glucose 113 H Total Bilirubin < 0.1 L Urine Protein 30 H Ur Leukocyte Esterase SMALL H Salicylates < 1.0 L Acetaminophen < 10 L - EKG Interpretation by Me Additional EKG results interpreted by me: 06/24/17 01:39 Sinus tachycardia. Rate 117. No ST elevations or depressions. QTC [id number] Discharge - Discharge Clinical Impression: Psychosis Qualifiers: Psychosis type: unspecified psychosis type Qualified Code(s): F29 - Unspecified psychosis not due to a substance or known physiological condition Bipolar disorder Qualifiers: Active/Remission status: currently active Current bipolar episode type: manic Current episode severity: unspecified Qualified Code(s): F31.9 - Bipolar disorder, unspecified Condition: Good Disposition: PSYCH HOSP/UNIT
--- NOTE | 2017-06-24 07:42 | EKG REPORT ---
SEVERITY:- OTHERWISE NORMAL ECG - SINUS TACHYCARDIA : Confirmed by: Lucio Stokes MD 24-Jun-2017 07:41:33
--- NOTE | 2017-06-24 09:13 | ER Document Report ---
Doctor's Note Notes: 06/24/17 09:12 22-year-old female patient with history of bipolar. Please see previous physician's note for further detail. Patient acutely psychotic. Has previous history of medication noncompliance so based on recommendations for mental health starting intramuscular dosing of atypical antipsychotic as well as Fortino recommending inpatient treatment at this time. We will continue to follow. Please see mental health note for further details with regards to patient's round and reports. Vital signs reviewed. Patient stable at this time. 06/24/17 11:01 Patient has been accepted as an inpatient transfer. Pending transfer at this time.
[2017-06-24] MEDS ORDERED: BENZTROPINE MESYLATE INJ 2 MG/2 ML AMPULE IM SCH (10:00)
[2017-06-24] MEDS ORDERED: OLANZAPINE INJ/PF 10 MG SDV IM SCH (10:00)
[2017-06-24 11:05] VITALS: BP 113/63
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
== END 2017-06-24 11:16 ==
LOC: ER 22:45
DX: F31.9 Bipolar disorder, unspecified (principal); F29 Unspecified psychosis not due to a substance or known physiological condition; R41.82 Altered mental status, unspecified; K50.90 Crohn's disease, unspecified, without complications; R45.1 Restlessness and agitation
CPT/HCPCS: 93005; 99285; 96372; 36415; 80307 ×4; 84703; 85025; 80053; 81001; 93010; J0515

== ENCOUNTER 2017-07-11 14:22 | Emergency (ER) | payer MEDICAID, OTHER ==
[2017-07-11 14:34] VITALS: BP 111/64
[2017-07-11] MEDS ORDERED: IBUPROFEN 600 MG TABLET PO ONE (15:03)
--- NOTE | 2017-07-11 15:04 | ER Document Report ---
ED Flu Like - General Chief Complaint: Flu Symptoms Stated Complaint: FLU LIKE SYMPTOMS Time Seen by Provider: 07/11/17 15:03 Mode of Arrival: Medic Information source: Patient Notes: 22-year-old female presented to ED for cough cold congestion and flulike symptoms for 3 days. She states she was feeling better now when she was ready to go home even though she came into the emergency room via EMS. She states at home she was felt like she was having an asthma problem with depression and anxiety. She states she is feeling much better now. TRAVEL OUTSIDE OF THE [place] IN LAST 30 DAYS: No - HPI Onset: Other - 3 days Timing/Duration: Better Quality of pain: Achy Severity: Mild CO exposure: No Associated symptoms: Body/muscle aches, Chills, Nonproductive cough, Fever, Rhinnorhea, Sinus pain/drainage Recently seen / treated by doctor: No - Related Data Allergies/Adverse Reactions: latex Allergy (Mild, Verified 07/11/17 14:28) Hives methylphenidate [From Concerta] Allergy (Verified 07/11/17 14:28) Penicillins Allergy (Verified 07/11/17 14:28) sulfamethoxazole [From Bactrim] Allergy (Verified 07/11/17 14:28) trimethoprim [From Bactrim] Allergy (Verified 07/11/17 14:28) Past Medical History - General Information source: Patient - Social History Smoking Status: Current Every Day Smoker Cigarette use (# per day): Yes - One fourth pack per day Chew tobacco use (# tins/day): No Smoking Education Provided: Yes - 4 minutes Frequency of alcohol use: None Drug Abuse: Other - States she has not used any drugs in 3 months but she was addicted to drugs Family History: Reviewed & Not Pertinent Patient has suicidal ideation: No Patient has homicidal ideation: No - Past Medical History Cardiac Medical History: Reports: None Pulmonary Medical History: Reports: Hx Asthma EENT Medical History: Reports: None Neurological Medical History: Reports: None Endocrine Medical History: Reports: None Renal/ Medical History: Reports: None Malignancy Medical History: Reports: None GI Medical History: Reports: Hx Crohn's Disease, Hx Ulcerative Colitis Musculoskeltal Medical History: Reports None Psychiatric Medical History: Reports: Hx Anxiety, Hx Bipolar Disorder, Hx Depression Traumatic Medical History: Reports: None Past Surgical History: Reports: Hx Adenoidectomy, Hx Oral Surgery - wisdom, Hx Tonsillectomy - Immunizations Immunizations up to date: Yes Hx Diphtheria, Pertussis, Tetanus Vaccination: Yes Review of Systems - Review of Systems Notes: Constitutional: [PRESENT: as per HPI. ABSENT: weight gain, weight loss] patient states she is had some fevers, chills and headaches Eyes: [ABSENT: visual disturbances] Ears: [ABSENT: hearing changes] Nasopharynx: Nasal congestion postnasal drip cough Cardiovascular: [ABSENT: chest pain, dyspnea on exertion, edema, orthropnea, palpitations] Respiratory: [ABSENT: cough, hemoptysis] Gastrointestinal: [ABSENT: abdominal pain, constipation, diarrhea, hematemesis, hematochezia, nausea, vomiting] Genitourinary: [ABSENT: dysuria, hematuria] Musculoskeletal: [ABSENT: joint swelling] Integumentary: [ABSENT: rash, wounds] Neurological: [ABSENT: abnormal gait, abnormal speech, confusion, dizziness, focal weakness, syncope] Psychiatric: [ABSENT: anxiety, depression, homicidal ideation, suicidal ideation ] Endocrine: [ABSENT: cold intolerance, heat intolerance, menstrual abnormalities , polydipsia, polyuria] Hematologic/Lymphatic: [ABSENT: easy bleeding, easy bruising, lymphadenopathy] Physical Exam - Vital signs Vitals: Temp Pulse Resp BP Pulse Ox 98.7 F 105 H 20 111/64 98 07/11/17 14:32 07/11/17 14:32 07/11/17 14:32 07/11/17 14:32 07/11/17 14:32 - Notes Notes: PHYSICAL EXAMINATION: GENERAL: Well-appearing, well-nourished and in no acute distress. HEAD: Atraumatic, normocephalic. EYES: Pupils equal round and reactive to light, extraocular movements intact, conjunctiva are normal. ENT: Nasal turbinates erythematous and swollen , cobblestoned oropharynx with slightly enlarged tonsils without exudates. Moist mucous membranes. NECK: Normal range of motion, supple without lymphadenopathy LUNGS: Breath sounds clear to auscultation bilaterally and equal. No wheezes rales or rhonchi. Infrequent nonproductive cough HEART: Regular rate and rhythm without murmurs ABDOMEN: Soft, nontender, nondistended abdomen. No guarding, no rebound. No masses appreciated. Female : deferred Musculoskeletal: Normal range of motion, no pitting or edema. No cyanosis. NEUROLOGICAL: Cranial nerves grossly intact. Normal speech, normal gait. Normal sensory, motor exams PSYCH: Normal mood, normal affect. SKIN: Warm, Dry, normal turgor, no rashes or lesions noted. Course - Re-evaluation Re-evalutation: 07/11/17 16:25 Assessment consistent with an upper respiratory infection. No signs or symptoms of any strep throat. Lungs clear to auscultation. Patient speaking and even pulse sentences with no acute distress. Patient was given instructions concerning Tylenol Motrin cough and cold medicines. Patient is a given instructions to follow-up with her primary doctor. Patient also encouraged to stop smoking to reduce her respiratory symptoms. Patient able to verbalize understanding of her instructions. She denied any further questions or concerns. - Vital Signs Vital signs: Temp Pulse Resp BP Pulse Ox 98.7 F 105 H 20 111/64 98 07/11/17 14:32 07/11/17 14:32 07/11/17 14:32 07/11/17 14:32 07/11/17 14:32 Discharge - Discharge Clinical Impression: URI (upper respiratory infection) Qualifiers: URI type: unspecified URI Qualified Code(s): J06.9 - Acute upper respiratory infection, unspecified Condition: Stable Disposition: HOME, SELF-CARE Instructions: Family Physicians / Practices Additional Instructions: UPPER RESPIRATORY ILLNESS: You have a viral infection of the respiratory passages -- a "cold." This common infection causes nasal congestion, drainage, and often sore throat and cough. It is highly contagious. The disease usually lasts about 10 to 14 days. There is no "cure" for the viral infection -- it must run its course. If there is a complication, such as bacterial infection in the nose, sinuses, middle ear, or bronchial tubes, antibiotics may be required. The antibiotics won't affect the virus. Drink plenty of fluids. A humidifier may help. An expectorant medication or decongestant may make you more comfortable. Use acetaminophen or ibuprofen for fever or aches. See the doctor if fever persists over two days, if there is any significant worsening of your symptoms, or if you simply fail to improve as expected. Viral Syndrome The physician has diagnosed a viral infection. Viruses not only cause "colds," but can cause many different symptoms including generalized aching, fever, headache, cough, diarrhea, nausea, vomiting, and fatigue. The treatment, for the most part, is simply relief of symptoms. This means that antibiotics are usually not given. Rest, fluids, pain medications and, occasionally, medication for the specific symptoms that are most bothersome will be prescribed. Use good handwashing to avoid passing the virus to others. Shared toys should be cleaned with disinfectant. Clean the toilets, sinks, and counter surfaces in bathrooms. Launder clothing in hot water. Contact the physician if you develop any new or unusual symptoms such as severe headache, stiff neck, high fever, chest pain, productive cough, or shortness of breath. You should be rechecked if you don't see marked improvement within seven to 10 days. COUGH-SUPPRESSANT & EXPECTORANT MEDICATION: You are to use a cough medication as needed for relief of symptoms. This medicine is a combination of an expectorant (to make the mucous thinner and more easily "coughed up") and a cough suppressant (to reduce the frequency of coughing). The cough-suppressant medicine is related to narcotics. You may experience mild nausea and sleepiness. Some patients who are very sensitive to narcotics may have stomach pain from this medicine. Taking the medicine with food reduces these side effects. Do not drive or work with machinery until you know how this medicine affects you. The expectorant should have no side effects. Iodine-containing expectorants (such as organidin) should not be taken by persons with active thyroid disease unless approved by your doctor. Call the doctor if you develop shortness of breath, hives, rash, itching, lightheadedness, or severe nausea and vomiting. USE OF ACETAMINOPHEN (Tylenol): Acetaminophen may be taken for pain relief or fever control. It's much safer than aspirin, offering a wider range of "safe" dosages. It is safe during . Some brand names are Tylenol, Panadol, Datril, Anacin 3, Tempra, and Liquiprin. Acetaminophen can be repeated every four hours. The following are maximum recommended dosages: >89 pounds or adults 650 mg to 900 mg Acetaminophen can be repeated every four hours. Maximum dose not to exceed 4000 mg a day. SMOKING: If you smoke, you should stop smoking. The tar and chemicals in cigarette smoke are harmful. Smoking has been shown to cause: emphysema chronic bronchitis lung cancer mouth and throat cancer stomach and pancreas cancer premature aging defects In addition, smoking increases ear and lung infections in children of smokers. FOLLOW-UP CARE: If you have been referred to a physician for follow-up care, call the physician s office for an appointment as you were instructed or within the next two days. If you experience worsening or a significant change in your symptoms, notify the physician immediately or return to the Emergency Department at any time for re-evaluation. Forms: Smoking Cessation Education
== END 2017-07-11 15:20 | disposition home or self-care (01) ==
LOC: ER 14:22
DX: J06.9 Acute upper respiratory infection, unspecified (principal); R05 Cough; R09.81 Nasal congestion; F32.9 Major depressive disorder, single episode, unspecified; F41.9 Anxiety disorder, unspecified; M79.1 Myalgia; F17.210 Nicotine dependence, cigarettes, uncomplicated
CPT/HCPCS: 99406; 99283; J3490

== ENCOUNTER 2017-08-18 10:57 | Emergency (ER) | payer MEDICAID ==
[2017-08-18 11:13] VITALS: BP 126/57
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
[2017-08-18 12:11] LABS: AMORPHOUS SEDIMENT,URINE TRACE /HPF; APPEARANCE,URINE CLOUDY; BILIRUBIN,URINE NEGATIVE (NEGATIVE); COLOR,URINE YELLOW; GLUCOSE, URINE NEGATIVE (NEGATIVE); KETONES,URINE NEGATIVE (NEGATIVE); LEUKOCYTE ESTERASE,URINE MODERATE (NEGATIVE); NITRITE,URINE NEGATIVE (NEGATIVE); PROTEIN,URINE NEGATIVE (NEGATIVE); URINE SPECIFIC GRAVITY 1.025
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
[2017-08-18] MEDS ORDERED: PROMETHAZINE HCL 25 MG TABLET PO ONE (13:08)
[2017-08-18] MEDS ORDERED: CEFTRIAXONE INJ 250 MG VIAL IM ONE (13:08)
[2017-08-18] MEDS ORDERED: LIDOCAINE 1% INJ-PF (10 MG/ML) 30 ML SDV INJ ONE (13:08)
[2017-08-18] MEDS ORDERED: LEVONORGESTREL 1.5 MG TABLET (1 TAB/ER-USE) PO ONE (13:08)
[2017-08-18] MEDS ORDERED: AZITHROMYCIN 250 MG TABLET PO ONE (13:08)
[2017-08-18] MEDS ORDERED: TETANUS/DIPHTHERIA TOX-ADULT 0.5 ML SYR (>=7YO) IM ONE (13:08)
[2017-08-18] MEDS ORDERED: NITROFURANTOIN MONOHYD/M-CRYST 100 MG CAPSULE PO ONE (13:51)
[2017-08-18] MEDS ORDERED: PHENAZOPYRIDINE HCL 100 MG TABLET PO ONE (13:51)
== END 2017-08-18 14:12 | disposition home or self-care (01) ==
LOC: ER 10:57
DX: N30.00 Acute cystitis without hematuria (principal); F11.10 Opioid abuse, uncomplicated; F19.10 Other psychoactive substance abuse, uncomplicated; F12.10 Cannabis abuse, uncomplicated; J45.909 Unspecified asthma, uncomplicated
CPT/HCPCS: 81001; 81025; 87086; 99285

== ENCOUNTER 2017-09-05 10:49 | Emergency (ER) | payer MEDICAID ==
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
[2017-09-05] MEDS ORDERED: NICOTINE 21 MG/24 HR PATCH.TD24 TD ONE (12:39)
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
[2017-09-05 12:54] LABS: ABSOLUTE BASOPHILS # (AUTO) 0.1 10^3/uL (0.0-0.2); ABSOLUTE EOSINOPHILS # (AUTO) 0.1 10^3/uL (0.0-0.6); ABSOLUTE LYMPHOCYTES (AUTO) 1.9 10^3/uL (0.5-4.7); ABSOLUTE MONOCYTES (AUTO) 0.7 10^3/uL (0.1-1.4); ABSOLUTE NEUT (AUTO) 6.4 10^3/uL (1.7-8.2); BASOPHILS % (AUTO) 0.6 % (0-2); HEMATOCRIT 44.5 % (36.0-47.0); HEMOGLOBIN 14.8 g/dL (12.0-15.5); LYMPHOCYTES % (AUTO) 21.2 % (13-45); MEAN CORPUSCULAR HGB CONC 33.3 g/dL (32.0-36.0); MEAN CORPUSCULAR VOLUME 81 fl (80-97); MONOCYTES % (AUTO) 7.2 % (3-13); PLATELET COUNT 313 10^3/uL (150-450); RED CELL DISTRIBUTION WIDTH 21.2 % (11.5-14.0); TOTAL CELLS COUNTED % (AUTO) 100 %; WHITE BLOOD COUNT 9.2 10^3/uL (4.0-10.5)
[2017-09-05 12:55] LABS: ALANINE AMINOTRANSFERASE 19 U/L (9-52); ALBUMIN 4.9 g/dL (3.5-5.0); ALKALINE PHOSPHATASE 79 U/L (38-126); ANION GAP 14 (5-19); ASPARTATE AMINO TRANSFERASE 19 U/L (14-36); BILIRUBIN,DIRECT 0.1 mg/dL (0.0-0.4); BILIRUBIN,TOTAL 0.2 mg/dL (0.2-1.3); BLOOD UREA NITROGEN 17 mg/dL (7-20); CALCIUM 10.1 mg/dL (8.4-10.2); CARBON DIOXIDE 30 mmol/L (22-30); CHLORIDE 100 mmol/L (98-107); GLUCOSE 117 mg/dL (75-110); POTASSIUM 3.9 mmol/L (3.6-5.0); SODIUM 143.8 mmol/L (137-145); TOTAL PROTEIN 7.9 g/dL (6.3-8.2)
[2017-09-05 12:56] LABS: ACETAMINOPHEN < 10 ug/mL (10-30); ALCOHOL < 10 mg/dL (NONE DETECTED); SALICYLATE < 1.0 mg/dL (2.0-20.0)
[2017-09-05 13:06] LABS: URINE BARBITURATES SCREEN NEGATIVE; URINE BENZODIAZEPINES SCREEN UNCONFIRMED POSITIVE; URINE COCAINE SCREEN NEGATIVE; URINE MARIJUANA (THC) SCREEN UNCONFIRMED POSITIVE; URINE METHADONE SCREEN NEGATIVE; URINE PHENCYCLIDINE SCREEN NEGATIVE
[2017-09-05 13:08] LABS: APPEARANCE,URINE CLOUDY; BILIRUBIN,URINE NEGATIVE (NEGATIVE); GLUCOSE, URINE NEGATIVE (NEGATIVE); KETONES,URINE NEGATIVE (NEGATIVE); LEUKOCYTE ESTERASE,URINE MODERATE (NEGATIVE); NITRITE,URINE NEGATIVE (NEGATIVE); PROTEIN,URINE 30 mg/dL (NEGATIVE)
[2017-09-05 13:10] LABS: COLOR,URINE YELLOW
--- NOTE | 2017-09-05 13:33 | EKG REPORT ---
SEVERITY:- BORDERLINE ECG - SINUS RHYTHM BORDERLINE T ABNORMALITIES, INFERIOR LEADS : Confirmed by: Lucio Stokes MD 05-Sep-2017 13:32:34
[2017-09-05 14:21] VITALS: BP 117/71
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
== END 2017-09-05 14:22 | disposition home or self-care (01) ==
LOC: ER 10:49
DX: F31.9 Bipolar disorder, unspecified (principal); F41.9 Anxiety disorder, unspecified; Z79.899 Other long term (current) drug therapy; F12.10 Cannabis abuse, uncomplicated; F15.10 Other stimulant abuse, uncomplicated; R03.0 Elevated blood-pressure reading, without diagnosis of hypertension; J45.909 Unspecified asthma, uncomplicated; F17.200 Nicotine dependence, unspecified, uncomplicated; Z62.820 Parent-biological child conflict; Z88.8 Allergy status to other drugs, medicaments and biological substances; Z88.0 Allergy status to penicillin; Z88.1 Allergy status to other antibiotic agents
CPT/HCPCS: 93005; 99285; 36415; 87086; 80307 ×4; 84703; 85025; 87088; 80053; 81001; 87186; 93010; J3490

== ENCOUNTER 2017-11-25 15:07 | Emergency (ER) | payer MEDICAID, OTHER ==
--- NOTE | 2017-11-25 15:23 | ER Document Report ---
ED General <JOHN LOVE - Last Filed: 11/25/17 18:46> - General Mode of Arrival: Medic Information source: Patient TRAVEL OUTSIDE OF THE [place] IN LAST 30 DAYS: No <GURU GILMAN - Last Filed: 11/25/17 20:47> - General Stated Complaint: POSSIBLE OVERDOSE Time Seen by Provider: 11/25/17 15:17 Notes: Patient is a 22 year old female with Crohn's disease presents to the emergency department via EMS due to a possible heroin overdose. Patient states she injected heroin approximately 1 hour prior to arrival. Patient states her mother called the EMS due to her "feeling funny". Upon EMS arrival to the scene , patient was alert and oriented x4 and was able to ambulate to the truck. EMS proceeded to give 1g of Narcan after which the patient symptoms were resolved. Patient states she has used heroin before and believes she used more than normal today. At bedside patient denies any loss of consciousness, abdominal pain or shortness of breath. (GURU GILMAN) - Related Data Allergies/Adverse Reactions: latex Allergy (Mild, Verified 11/25/17 15:36) Hives methylphenidate [From Concerta] Allergy (Verified 11/25/17 15:36) Penicillins Allergy (Verified 11/25/17 15:36) sulfamethoxazole [From Bactrim] Allergy (Verified 11/25/17 15:36) trimethoprim [From Bactrim] Allergy (Verified 11/25/17 15:36) Past Medical History - General Information source: Patient - Social History Smoking Status: Unknown if Ever Smoked Drug Abuse: Heroin Family History: Reviewed & Not Pertinent Pulmonary Medical History: Reports: Hx Asthma GI Medical History: Reports: Hx Crohn's Disease, Hx Ulcerative Colitis Psychiatric Medical History: Reports: Hx Anxiety, Hx Bipolar Disorder, Hx Depression Past Surgical History: Reports: Hx Adenoidectomy, Hx Oral Surgery - wisdom, Hx Tonsillectomy - Immunizations Immunizations up to date: Yes Hx Diphtheria, Pertussis, Tetanus Vaccination: Yes <GURU GILMAN - Last Filed: 11/25/17 20:47> Review of Systems - Review of Systems Constitutional: See HPI EENT: No symptoms reported Cardiovascular: No symptoms reported Respiratory: No symptoms reported Gastrointestinal: No symptoms reported Genitourinary: No symptoms reported Female Genitourinary: No symptoms reported Musculoskeletal: No symptoms reported Skin: No symptoms reported Hematologic/Lymphatic: No symptoms reported Neurological/Psychological: No symptoms reported -: Yes All other systems reviewed and negative <GURU GILMAN - Last Filed: 11/25/17 20:47> Physical Exam <JOHN LOVE - Last Filed: 11/25/17 18:46> <GURU GILMAN - Last Filed: 11/25/17 20:47> - Vital signs Vitals: Temp 97.9 F 11/25/17 15:18 - Notes Notes: GENERAL: Alert, interacts well. Tearful. No acute distress. HEAD: Normocephalic, atraumatic. EYES: Pupils equal, round, and reactive to light. Extraocular movements intact. ENT: Oral mucosa moist, tongue midline. NECK: Full range of motion. Supple. Trachea midline. LUNGS: Clear to auscultation bilaterally, no wheezes, rales, or rhonchi. No respiratory distress. HEART: Mild tachycardia. No murmurs, gallops, or rubs. EXTREMITIES: Moves all 4 extremities spontaneously. NEUROLOGICAL: Alert and oriented x3. Normal speech. PSYCH: Normal affect, normal mood. SKIN: Warm, dry, normal turgor. No rashes or lesions noted. (GURU GILMAN) Course - Laboratory Result Diagrams: 11/25/17 15:14 11/25/17 15:14 - EKG Interpretation by [facility] EKG shows normal: Sinus rhythm Rate: Normal Rhythm: NSR - Normal intervals and normal axis <JOHN LOVE - Last Filed: 11/25/17 18:46> - Laboratory Result Diagrams: 11/25/17 15:14 11/25/17 15:14 <GURU GILMAN - Last Filed: 11/25/17 20:47> - Re-evaluation Re-evalutation: 11/25/17 16:28 Discussed case with poison control will watch patient for 4 hours from Narcan administration. Patient remains for cocaine and amphetamines and opioids. Counseled patient on drug abuse. 11/25/17 18:46 It has been 4 hours since Narcan administration patient remained alert and oriented will be discharged at this time (JOHN LOVE) - Vital Signs Vital signs: Temp Pulse Resp BP Pulse Ox 97.9 F 18 101/51 L 98 11/25/17 15:18 11/25/17 18:09 11/25/17 18:09 11/25/17 18:09 - Laboratory Laboratory results interpreted by me: 11/25/17 11/25/17 15:14 15:14 RDW 14.7 H Chloride 108 H AST 209 H ALT 370 H Discharge <JOHN LOVE - Last Filed: 11/25/17 18:46> <GURU GILMAN - Last Filed: 11/25/17 20:47> - Discharge Clinical Impression: Opioid abuse, Drug abuse Condition: Good Disposition: HOME, SELF-CARE Instructions: Narcotic Abuse ([facility]) Additional Instructions: Please follow-up with primary care physician in regards to substance abuse programs as continued use increases your risk of Referrals: RACHID MOLINA FNP [Primary Care Provider] - Follow up in 3-5 days (To discuss options for drug rehabilitation) Scribe Documentation - Scribe Written by Ashliee:: Brigido Rodriguez, 11/25/2017 15:27 acting as scribe for :: Luisa <GURU GILMAN - Last Filed: 11/25/17 20:47>
[2017-11-25 15:29] LABS: ABSOLUTE BASOPHILS # (AUTO) 0.1 10^3/uL (0.0-0.2); ABSOLUTE EOSINOPHILS # (AUTO) 0.3 10^3/uL (0.0-0.6); ABSOLUTE LYMPHOCYTES (AUTO) 2.3 10^3/uL (0.5-4.7); ABSOLUTE MONOCYTES (AUTO) 0.8 10^3/uL (0.1-1.4); ABSOLUTE NEUT (AUTO) 3.8 10^3/uL (1.7-8.2); EOSINOPHILS % (AUTO) 4.3 % (0-6); HEMATOCRIT 42.1 % (36.0-47.0); HEMOGLOBIN 14.2 g/dL (12.0-15.5); LYMPHOCYTES % (AUTO) 31.4 % (13-45); MEAN CORPUSCULAR HEMOGLOBIN 28.6 pg (27.0-33.4); MEAN CORPUSCULAR HGB CONC 33.7 g/dL (32.0-36.0); MEAN CORPUSCULAR VOLUME 85 fl (80-97); PLATELET COUNT 308 10^3/uL (150-450); RED BLOOD COUNT 4.96 10^6/uL (3.72-5.28); RED CELL DISTRIBUTION WIDTH 14.7 % (11.5-14.0); SEGMENTED NEUTROPHILS % (AUTO) 52.3 % (42-78); TOTAL CELLS COUNTED % (AUTO) 100 %; WHITE BLOOD COUNT 7.2 10^3/uL (4.0-10.5)
[2017-11-25 15:49] LABS: ALANINE AMINOTRANSFERASE 370 U/L (9-52); ALBUMIN 4.1 g/dL (3.5-5.0); ALKALINE PHOSPHATASE 106 U/L (38-126); ANION GAP 11 (5-19); ASPARTATE AMINO TRANSFERASE 209 U/L (14-36); BILIRUBIN,DIRECT 0.4 mg/dL (0.0-0.4); BILIRUBIN,TOTAL 0.6 mg/dL (0.2-1.3); BLOOD UREA NITROGEN 14 mg/dL (7-20); CALCIUM 9.3 mg/dL (8.4-10.2); CARBON DIOXIDE 26 mmol/L (22-30); CHLORIDE 108 mmol/L (98-107); GLUCOSE 92 mg/dL (75-110); POTASSIUM 4.7 mmol/L (3.6-5.0); SODIUM 144.7 mmol/L (137-145); TOTAL PROTEIN 7.4 g/dL (6.3-8.2)
[2017-11-25 16:15] LABS: URINE AMPHETAMINES SCREEN NEGATIVE; URINE BARBITURATES SCREEN NEGATIVE; URINE BENZODIAZEPINES SCREEN NEGATIVE; URINE COCAINE SCREEN UNCONFIRMED POSITIVE; URINE MARIJUANA (THC) SCREEN UNCONFIRMED POSITIVE; URINE METHADONE SCREEN NEGATIVE; URINE PHENCYCLIDINE SCREEN NEGATIVE
[2017-11-25 18:11] VITALS: BP 101/51
--- NOTE | 2017-11-25 18:52 | EKG REPORT ---
SEVERITY:- NORMAL ECG - SINUS RHYTHM : Confirmed by: Lucio Stokes MD 25-Nov-2017 18:51:28
== END 2017-11-25 18:58 | disposition home or self-care (01) ==
LOC: ER 15:07
DX: F11.10 Opioid abuse, uncomplicated (principal); Z88.0 Allergy status to penicillin; Z88.3 Allergy status to other anti-infective agents; Z91.040 Latex allergy status
CPT/HCPCS: 36415; 80053; 80307; 85025; 93005; 93010; 99285

== ENCOUNTER 2017-12-11 12:14 | Emergency (ER) | payer MEDICAID, OTHER ==
[2017-12-11 12:20] VITALS: BP 123/75
--- NOTE | 2017-12-11 12:36 | ER Document Report ---
ED General - General Chief Complaint: Psych Problem Stated Complaint: POSSIBLE ANXIETY Time Seen by Provider: 12/11/17 12:32 Notes: 22-year-old female PMH drug abuse here with complaints of wanting information on rehab resources. Earlier today, she injected some Xanax to get high and states she wants to stop. She denies any suicidal/homicidal ideations, hallucinations. She has no other complaints. TRAVEL OUTSIDE OF THE [place] IN LAST 30 DAYS: No - Related Data Allergies/Adverse Reactions: latex Allergy (Mild, Verified 12/11/17 12:16) Hives methylphenidate [From Concerta] Allergy (Verified 12/11/17 12:16) Penicillins Allergy (Verified 12/11/17 12:16) sulfamethoxazole [From Bactrim] Allergy (Verified 12/11/17 12:16) trimethoprim [From Bactrim] Allergy (Verified 12/11/17 12:16) Past Medical History - Social History Smoking Status: Unknown if Ever Smoked Family History: Reviewed & Not Pertinent Pulmonary Medical History: Reports: Hx Asthma Renal/ Medical History: Denies: Hx Peritoneal Dialysis GI Medical History: Reports: Hx Crohn's Disease, Hx Ulcerative Colitis Psychiatric Medical History: Reports: Hx Anxiety, Hx Bipolar Disorder, Hx Depression Past Surgical History: Reports: Hx Adenoidectomy, Hx Oral Surgery - wisdom, Hx Tonsillectomy - Immunizations Immunizations up to date: Yes Hx Diphtheria, Pertussis, Tetanus Vaccination: Yes Review of Systems - Review of Systems Notes: See history of present illness for pertinent positive review of systems; otherwise all review of systems have been reviewed and are negative Physical Exam - Vital signs Vitals: Temp Pulse Resp BP Pulse Ox 98.5 F 114 H 12 123/75 99 12/11/17 12:19 12/11/17 12:19 12/11/17 12:19 12/11/17 12:19 12/11/17 12:19 - Notes Notes: PHYSICAL EXAMINATION: GENERAL: Well-appearing and in no acute distress. HEAD: Atraumatic, normocephalic. EYES: Pupils equal round and reactive to light, extraocular movements intact, sclera anicteric, conjunctiva are normal. ENT: nares patent, oropharynx clear without exudates. Moist mucous membranes. NECK: Normal range of motion, supple without lymphadenopathy LUNGS: CTAB and equal. No wheezes rales or rhonchi. HEART: Mildly tachycardic rate (likely due to patient crying) and regular rhythm without murmurs ABDOMEN: Soft, no tenderness. No facial grimacing/wincing upon palpation. No guarding, no rebound. EXTREMITIES: Normal range of motion, no pitting edema. No cyanosis. NEUROLOGICAL: Cranial nerves grossly intact. Normal sensory/motor exams. PSYCH: Normal mood, normal affect. No suicidal/homicidal ideations. Not hallucinating SKIN: Warm, Dry, normal turgor, no rashes or lesions noted Course - Re-evaluation Re-evalutation: 12/11/17 12:38 MEDICAL DECISION MAKING: Discussed with patient use of Librium, long-acting BZD, for her symptoms We have given her information sheets for multiple rehab/detox resources Instructed to follow-up with them regarding entering rehabilitation and detox Patient understands and agrees to the plan of care - Vital Signs Vital signs: Temp Pulse Resp BP Pulse Ox 98.5 F 114 H 12 123/75 99 12/11/17 12:19 12/11/17 12:19 12/11/17 12:19 12/11/17 12:19 12/11/17 12:19 Discharge - Discharge Clinical Impression: Benzodiazepine abuse Condition: Good Disposition: HOME, SELF-CARE Additional Instructions: You were seen in the emergency department at [facility]. Please stop abusing Xanax and other prescription drugs. Use the medication prescribed to help you wean off of the Xanax. Use the resources given to you in the form of information sheets to help in your pursuit of rehabilitation. Please followup with your primary physician in the next few days for further management /evaluation. Please return to the emergency department for worsening of symptoms or any symptom that you deem to be concerning or life-threatening. Thank you for allowing us to be part of your care. Prescriptions: Chlordiazepoxide HCl [Librium 10 mg Capsule] 1 cap PO TID #14 cap Referrals: RACHID MOLINA FNP [COMMUNITY BASED STAFF] - Follow up as needed
== END 2017-12-11 12:38 | disposition home or self-care (01) ==
LOC: ER 12:14
DX: F13.10 Sedative, hypnotic or anxiolytic abuse, uncomplicated (principal); J45.909 Unspecified asthma, uncomplicated; R00.0 Tachycardia, unspecified; Z91.040 Latex allergy status; Z88.8 Allergy status to other drugs, medicaments and biological substances; Z88.0 Allergy status to penicillin; Z88.1 Allergy status to other antibiotic agents
CPT/HCPCS: 99284

== ENCOUNTER 2018-05-12 07:05 | Emergency (ER) | payer MEDICAID, OTHER ==
--- NOTE | 2018-05-12 08:28 | ER Document Report ---
ED General - General Chief Complaint: Medical Clearance Stated Complaint: MEDICAL CLEARANCE/DETOX Time Seen by Provider: 05/12/18 07:52 Notes: Patient is a 23-year-old female with history of opiate abuse that presents to the emergency department for chief complaint of need for medical clearance for detox. Patient states that she is a heroin addict, she last used this morning, and is wanting to get detox, she went to detox and they requested medical clearance prior to coming to the hospital for detox. She states has been using heroin most recently over the past year, prior to that she was clean at one point for 3 months, she does occasionally use methamphetamines and cocaine but none of that recently according to the patient. At this time she denies any suicidal homicidal ideation, but she does have a history of depression and bipolar which she is not currently taking any medications for. She also reports a history of Crohn's disease, but denies at this time any abdominal pain , diarrhea, nausea or vomiting. She also denies any recent fevers, chills, night sweats, chest pain, shortness of breath or difficulty breathing. Past Medical History: Crohn's disease, depression, bipolar disorder, opiate dependency Past Surgical History: Denies surgical history Social History: Admits to smoking cigarettes, and denies alcohol use, but does admit to occasional methamphetamines and cocaine use, as well as near daily heroin use Family History: Reviewed and noncontributory for presenting illness Allergies: Reviewed, see documented allergy list. REVIEW OF SYSTEMS: Other than noted above, the 12 point review of systems was reviewed with the patient and were negative, all pertinent findings are included in the HPI. PHYSICAL EXAMINATION: Vital signs reviewed, nursing noted reviewed. GENERAL: Patient appears older than stated age, well-nourished HEAD: Atraumatic, normocephalic. EYES: Eyes appear normal, extraocular movements intact, sclera anicteric, conjunctiva are normal. ENT: nares patent, oropharynx clear without exudates. Moist mucous membranes. Poor dentition. NECK: Normal range of motion, supple without lymphadenopathy LUNGS: Breath sounds clear to auscultation bilaterally and equal. No wheezes rales or rhonchi. HEART: Regular rate and rhythm without murmurs ABDOMEN: Soft, nontender, normoactive bowel sounds. No rebound, guarding, or rigidity. No masses appreciated. EXTREMITIES: Nontender, good range of motion, no pitting or edema. NEUROLOGICAL: No focal neurological deficits. Moves all extremities spontaneously Motor and sensory grossly intact on exam. PSYCH: Flat affect, tearful at times. SKIN: Warm, Dry, normal turgor, multiple track trin[place], and the upper extremities , area of ecchymosis and recent injection in the right antecubital fossa, without evidence of cellulitis. Patient does have a lesion on her right mid forearm, that is mildly erythematous, with no lymphangitis, it is nontender to palpate. TRAVEL OUTSIDE OF THE [place] IN LAST 30 DAYS: No - Related Data Allergies/Adverse Reactions: latex Allergy (Mild, Verified 05/12/18 07:39) Hives methylphenidate [From Concerta] Allergy (Verified 05/12/18 07:39) Penicillins Allergy (Verified 05/12/18 07:39) sulfamethoxazole [From Bactrim] Allergy (Verified 05/12/18 07:39) trimethoprim [From Bactrim] Allergy (Verified 05/12/18 07:39) Past Medical History - Social History Smoking Status: Current Every Day Smoker Chew tobacco use (# tins/day): No Frequency of alcohol use: Heavy Drug Abuse: Heroin Family History: Reviewed & Not Pertinent Patient has suicidal ideation: No Patient has homicidal ideation: No Pulmonary Medical History: Reports: Hx Asthma Renal/ Medical History: Denies: Hx Peritoneal Dialysis GI Medical History: Reports: Hx Crohn's Disease, Hx Ulcerative Colitis Psychiatric Medical History: Reports: Hx Anxiety, Hx Bipolar Disorder, Hx Depression Past Surgical History: Reports: Hx Adenoidectomy, Hx Oral Surgery - wisdom, Hx Tonsillectomy - Immunizations Immunizations up to date: Yes Hx Diphtheria, Pertussis, Tetanus Vaccination: Yes Physical Exam - Vital signs Vitals: Temp Pulse Resp BP Pulse Ox 98.1 F 84 18 122/69 96 05/12/18 07:12 05/12/18 07:12 05/12/18 07:12 05/12/18 07:12 05/12/18 07:12 Course - Re-evaluation Re-evalutation: Patient seen and examined, vital signs reviewed. Patient's mother was at bedside and concerned that the patient has been very depressed, and is sent concerning text to her, and would like mental health evaluation as well, she is stated the patient's required IVC in the past. Medical screening testing was ordered including bloodwork, EKG, and toxicology. Results of testing were reviewed. Testing demonstrated transaminitis, which was seen on prior labs, patient does not have documented history of hepatitis C , appears to be chronic, not acute, no elevation in bilirubin, no evidence of acute hepatitis otherwise, patient does not have abdominal pain or right upper quadrant tenderness. We will send off hepatitis serologies. Her UA was consistent with urinary tract infection, her potassium was 3.5, given replacement. Patient has been stable from a hemodynamic standpoint. Patient given dose of doxycycline 100 mg, for the UTI, she has other medical allergies, also wanted to treat possible early cellulitis in forearm. I went back in the room, the patient stated she is mainly very upset because her mother was antagonizing her, I discussed with her and asked again if she was having suicidal ideations at this time, and she denies, stating that she only feels depressed, she does have a counselor that she can follow-up with, she really wants detox at this point and that is her main goal. at This point I canceled the psych consult, will have him follow-up with her counselor, as well as a detox center. Copies of her labs were provided. Patient given a prescription for doxycycline, for UTI as well as possible early cellulitis in the left arm. Laboratory 05/12/18 05/12/18 05/12/18 08:24 08:24 08:24 WBC 6.2 RBC 4.54 Hgb 12.7 Hct 36.9 MCV 81 MCH 27.9 MCHC 34.4 RDW 13.1 Plt Count 266 Seg Neutrophils % 43.0 Lymphocytes % 44.9 Monocytes % 8.9 Eosinophils % 2.4 Basophils % 0.8 Absolute Neutrophils 2.7 Absolute Lymphocytes 2.8 Absolute Monocytes 0.6 Absolute Eosinophils 0.1 Absolute Basophils 0.1 Sodium 137.6 Potassium 3.3 L Chloride 104 Carbon Dioxide 28 Anion Gap 6 BUN 9 Creatinine 0.75 Est GFR ( Amer) > 60 Est GFR (Non-Af Amer) > 60 Glucose 89 Calcium 8.8 Total Bilirubin 0.3 Direct Bilirubin 0.1 Neonat Total Bilirubin Not Reportable Neonat Direct Bilirubin Not Reportable Neonat Indirect Bili Not Reportable AST 155 H ALT 138 H Alkaline Phosphatase 95 Total Protein 6.6 Albumin 3.6 Urine Color YELLOW Urine Appearance CLOUDY Urine pH 5.0 Ur Specific Barbeau 1.026 Urine Protein 30 H Urine Glucose (UA) NEGATIVE Urine Ketones NEGATIVE Urine Blood NEGATIVE Urine Nitrite POSITIVE H Urine Bilirubin NEGATIVE Urine Urobilinogen NEGATIVE Ur Leukocyte Esterase MODERATE H Urine WBC (Auto) 57 Urine RBC (Auto) 5 Urine Bacteria (Auto) 3+ Squamous Epi Cells Auto 9 Urine Mucus (Auto) MANY Urine Ascorbic Acid NEGATIVE Salicylates < 1.0 L Urine Opiates Screen Urine Methadone Screen Acetaminophen < 10 L Ur Barbiturates Screen Ur Phencyclidine Scrn Ur Amphetamines Screen U Benzodiazepines Scrn Urine Cocaine Screen U Marijuana (THC) Screen Serum Alcohol < 10 05/12/18 08:24 WBC RBC Hgb Hct MCV MCH MCHC RDW Plt Count Seg Neutrophils % Lymphocytes % Monocytes % Eosinophils % Basophils % Absolute Neutrophils Absolute Lymphocytes Absolute Monocytes Absolute Eosinophils Absolute Basophils Sodium Potassium Chloride Carbon Dioxide Anion Gap BUN Creatinine Est GFR ( Amer) Est GFR (Non-Af Amer) Glucose Calcium Total Bilirubin Direct Bilirubin Neonat Total Bilirubin Neonat Direct Bilirubin Neonat Indirect Bili AST ALT Alkaline Phosphatase Total Protein Albumin Urine Color Urine Appearance Urine pH Ur Specific Barbeau Urine Protein Urine Glucose (UA) Urine Ketones Urine Blood Urine Nitrite Urine Bilirubin Urine Urobilinogen Ur Leukocyte Esterase Urine WBC (Auto) Urine RBC (Auto) Urine Bacteria (Auto) Squamous Epi Cells Auto Urine Mucus (Auto) Urine Ascorbic Acid Salicylates Urine Opiates Screen UNCONFIRMED POSITIVE Urine Methadone Screen NEGATIVE Acetaminophen Ur Barbiturates Screen NEGATIVE Ur Phencyclidine Scrn NEGATIVE Ur Amphetamines Screen U Benzodiazepines Scrn NEGATIVE Urine Cocaine Screen NEGATIVE U Marijuana (THC) Screen NEGATIVE Serum Alcohol - Vital Signs Vital signs: Temp Pulse Resp BP Pulse Ox 97.5 F 97 18 119/65 97 05/12/18 11:19 05/12/18 11:19 05/12/18 07:12 05/12/18 11:19 05/12/18 11:19 - Laboratory Result Diagrams: 05/12/18 08:24 05/12/18 08:24 Laboratory results interpreted by me: 05/12/18 05/12/18 08:24 08:24 Potassium 3.3 L AST 155 H ALT 138 H Urine Protein 30 H Urine Nitrite POSITIVE H Ur Leukocyte Esterase MODERATE H Salicylates < 1.0 L Acetaminophen < 10 L - EKG Interpretation by Me Additional EKG results interpreted by me: EKG demonstrates sinus rhythm with a ventricular rate of 70 bpm, normal axis, normal levels, no evidence of acute ischemia on this EKG, this is compared to prior EKG from 11/25/2017, without significant change. Discharge - Discharge Clinical Impression: Depressive disorder Opiate dependence Qualifiers: Substance use status: with unspecified opioid-induced disorder Qualified Code(s ): F11.29 - Opioid dependence with unspecified opioid-induced disorder UTI (urinary tract infection) Qualifiers: Urinary tract infection type: site unspecified Hematuria presence: without hematuria Qualified Code(s): N39.0 - Urinary tract infection, site not specified Cellulitis Qualifiers: Site of cellulitis: extremity Site of cellulitis of extremity: upper extremity Laterality: left Qualified Code(s): L03.114 - Cellulitis of left upper limb Condition: Stable Disposition: HOME, SELF-CARE Instructions: Narcotic Abuse ([facility]) Additional Instructions: Please follow-up with detox center, I feel that you are medically cleared to proceed with detox at this point, he also to follow-up with her counselor, regarding medications for your depressive disorder. If you have any concerns, or develop any suicidal ideations homicidal ideations or hallucinations, please return immediately to the emergency department to be reevaluated. Please take the antibiotic prescribed for both your urinary tract infection, and for possible early skin infection on your left arm. Prescriptions: Doxycycline Hyclate 100 mg PO BID #14 capsule Referrals: CARMEN MCRAE MD [Primary Care Provider] - Follow up in 3-5 days
[2018-05-12 08:40] LABS: ABSOLUTE BASOPHILS # (AUTO) 0.1 10^3/uL (0.0-0.2); ABSOLUTE EOSINOPHILS # (AUTO) 0.1 10^3/uL (0.0-0.6); ABSOLUTE LYMPHOCYTES (AUTO) 2.8 10^3/uL (0.5-4.7); ABSOLUTE MONOCYTES (AUTO) 0.6 10^3/uL (0.1-1.4); ABSOLUTE NEUT (AUTO) 2.7 10^3/uL (1.7-8.2); BASOPHILS % (AUTO) 0.8 % (0-2); EOSINOPHILS % (AUTO) 2.4 % (0-6); HEMATOCRIT 36.9 % (36.0-47.0); HEMOGLOBIN 12.7 g/dL (12.0-15.5); LYMPHOCYTES % (AUTO) 44.9 % (13-45); MEAN CORPUSCULAR HEMOGLOBIN 27.9 pg (27.0-33.4); MEAN CORPUSCULAR HGB CONC 34.4 g/dL (32.0-36.0); MEAN CORPUSCULAR VOLUME 81 fl (80-97); MONOCYTES % (AUTO) 8.9 % (3-13); PLATELET COUNT 266 10^3/uL (150-450); RED BLOOD COUNT 4.54 10^6/uL (3.72-5.28); RED CELL DISTRIBUTION WIDTH 13.1 % (11.5-14.0); TOTAL CELLS COUNTED % (AUTO) 100 %; WHITE BLOOD COUNT 6.2 10^3/uL (4.0-10.5)
[2018-05-12 09:04] LABS: ALANINE AMINOTRANSFERASE 138 U/L (9-52); ALBUMIN 3.6 g/dL (3.5-5.0); ALKALINE PHOSPHATASE 95 U/L (38-126); ANION GAP 6 (5-19); ASPARTATE AMINO TRANSFERASE 155 U/L (14-36); BILIRUBIN,DIRECT 0.1 mg/dL (0.0-0.4); BILIRUBIN,TOTAL 0.3 mg/dL (0.2-1.3); BLOOD UREA NITROGEN 9 mg/dL (7-20); CALCIUM 8.8 mg/dL (8.4-10.2); CARBON DIOXIDE 28 mmol/L (22-30); CHLORIDE 104 mmol/L (98-107); GLUCOSE 89 mg/dL (75-110); POTASSIUM 3.3 mmol/L (3.6-5.0); SODIUM 137.6 mmol/L (137-145); TOTAL PROTEIN 6.6 g/dL (6.3-8.2)
[2018-05-12 09:05] LABS: ACETAMINOPHEN < 10 ug/mL (10-30); ALCOHOL < 10 mg/dL (NONE DETECTED); APPEARANCE,URINE CLOUDY; BILIRUBIN,URINE NEGATIVE (NEGATIVE); GLUCOSE, URINE NEGATIVE (NEGATIVE); KETONES,URINE NEGATIVE (NEGATIVE); LEUKOCYTE ESTERASE,URINE MODERATE (NEGATIVE); NITRITE,URINE POSITIVE (NEGATIVE); PROTEIN,URINE 30 mg/dL (NEGATIVE); SALICYLATE < 1.0 mg/dL (2.0-20.0); URINE SPECIFIC GRAVITY 1.026; UROBILINOGEN,URINE NEGATIVE mg/dL (<2.0)
[2018-05-12 09:07] LABS: COLOR,URINE YELLOW
[2018-05-12 09:21] LABS: URINE BARBITURATES SCREEN NEGATIVE; URINE BENZODIAZEPINES SCREEN NEGATIVE; URINE COCAINE SCREEN NEGATIVE; URINE MARIJUANA (THC) SCREEN NEGATIVE; URINE METHADONE SCREEN NEGATIVE; URINE PHENCYCLIDINE SCREEN NEGATIVE
[2018-05-12] MEDS ORDERED: DOXYCYCLINE HYCLATE 100 MG TABLET PO ONE (09:32)
[2018-05-12] MEDS ORDERED: POTASSIUM CHLORIDE 10 MEQ CAPSULE.ER PO ONE (09:38)
[2018-05-12 11:20] VITALS: BP 119/65
--- NOTE | 2018-05-12 12:54 | EKG REPORT ---
SEVERITY:- NORMAL ECG - SINUS RHYTHM : Confirmed by: Lucio Stokes MD 12-May-2018 12:54:20
[2018-05-13 08:42] LABS: HEPATITIS A AB IGM Negative (Negative); HEPATITIS B CORE AB IGM Negative (Negative); HEPATITS B SURFACE ANTIGEN Negative (Negative)
[2018-05-13 09:16] LABS: HEPATITIS C VIRUS ANTIBODY >11.0 s/co ratio (0.0-0.9)
== END 2018-05-12 11:24 | disposition home or self-care (01) ==
LOC: ER 07:05
DX: N39.0 Urinary tract infection, site not specified (principal); L03.114 Cellulitis of left upper limb; F32.9 Major depressive disorder, single episode, unspecified; F11.29 Opioid dependence with unspecified opioid-induced disorder; F17.200 Nicotine dependence, unspecified, uncomplicated; Z91.040 Latex allergy status; Z88.0 Allergy status to penicillin; Z88.3 Allergy status to other anti-infective agents
CPT/HCPCS: 93005; 99283; 36415; 87086; 80307 ×4; 85025; 87088; 80053; 81001; 87186; 80074; 93010; J3490

== ENCOUNTER 2018-12-09 04:50 | Emergency (ER) | payer MEDICAID ==
[2018-12-09 05:03] VITALS: BP 121/66
[2018-12-09] MEDS ORDERED: ONDANSETRON HCL INJ/PF 4 MG/2 ML SDV IV ONE (06:22)
[2018-12-09] MEDS ORDERED: NORMAL SALINE 1000 ML 1,000 ML IV ONE ×2 (06:22→08:10)
--- NOTE | 2018-12-09 07:09 | RADIOLOGY REPORT (SQ) ---
EXAM DESCRIPTION: CT HEAD WITHOUT IV CONTRAST COMPLETED DATE/TME: 12/09/2018 06:18 CLINICAL HISTORY: 23 years, Female, KUMAR after IV cocaine COMPARISON: None. TECHNIQUE: Axial CT images of the brain were obtained without contrast. Sagittal and coronal reformats were performed. DLP [id number]. Images stored on PACS. All CT scanners at this facility use dose modulation, iterative reconstruction, and/or weight based dosing when appropriate to reduce radiation dose to as low as reasonably achievable (ALARA). [facility]: Dose Right [facility]: CareDose [facility]: Dose Right [facility]: Teradose 4D [facility]: MySiteApp LIMITATIONS: None. FINDINGS: Is no acute cortical infarct, hemorrhage, mass, edema, hydrocephalus, or extra-axial fluid collection. The oden-white matter differentiation is preserved. The paranasal sinuses and mastoid air cells are clear. There is no acute fracture. IMPRESSION: No acute intracranial abnormality. TECHNICAL DOCUMENTATION: Quality ID # [id number]: Final reports with documentation of one or more dose reduction techniques (e.g., Automated exposure control, adjustment of the mA and/or kV according to patient size, use of iterative reconstruction technique) copyright 2011 [employer]- All Rights Reserved
--- NOTE | 2018-12-09 07:33 | EKG REPORT ---
SEVERITY:- ABNORMAL ECG - SINUS TACHYCARDIA NONSPECIFIC ST-T CHANGES INFEROLATERAL LEADS COMPARED WITH 05/12/18 EKG : Confirmed by: Lucio Stokes MD 09-Dec-2018 07:32:54
[2018-12-09 08:07] LABS: HEMATOCRIT 36.8 % (36.0-47.0); HEMOGLOBIN 12.5 g/dL (12.0-15.5); MEAN CORPUSCULAR HEMOGLOBIN 28.8 pg (27.0-33.4); MEAN CORPUSCULAR HGB CONC 34.1 g/dL (32.0-36.0); MEAN CORPUSCULAR VOLUME 85 fl (80-97); PLATELET COUNT 254 10^3/uL (150-450); RED BLOOD COUNT 4.34 10^6/uL (3.72-5.28); RED CELL DISTRIBUTION WIDTH 13.4 % (11.5-14.0); WHITE BLOOD COUNT 8.7 10^3/uL (4.0-10.5)
[2018-12-09 08:13] LABS: ALANINE AMINOTRANSFERASE 38 U/L (9-52); ALBUMIN 3.4 g/dL (3.5-5.0); ALKALINE PHOSPHATASE 79 U/L (38-126); ANION GAP 5 (5-19); ASPARTATE AMINO TRANSFERASE 44 U/L (14-36); BILIRUBIN,DIRECT 0.4 mg/dL (0.0-0.4); BILIRUBIN,TOTAL 0.7 mg/dL (0.2-1.3); BLOOD UREA NITROGEN 12 mg/dL (7-20); CALCIUM 8.8 mg/dL (8.4-10.2); CREATINE KINASE 49 U/L (30-135); GLUCOSE 98 mg/dL (75-110); POTASSIUM 3.3 mmol/L (3.6-5.0); TOTAL PROTEIN 6.3 g/dL (6.3-8.2)
[2018-12-09 08:19] LABS: CARBON DIOXIDE 29 mmol/L (22-30); CHLORIDE 106 mmol/L (98-107); SODIUM 140.1 mmol/L (137-145)
[2018-12-09 08:20] LABS: ACETAMINOPHEN < 10 ug/mL (10-30); ALCOHOL < 10 mg/dL (NONE DETECTED); SALICYLATE < 1.0 mg/dL (2.0-20.0)
[2018-12-09 08:22] LABS: ABSOLUTE LYMPHOCYTES# (MANUAL) 0.7 10^3/uL (0.5-4.7); BAND NEUTROPHILS % (MANUAL) 9 % (3-5); BASOPHILS % (MANUAL) 0 % (0-2); EOSINOPHILS % (MANUAL) 0 % (0-6); LYMPHOCYTES % (MANUAL) 8 % (13-45); MONOCYTES % (MANUAL) 0 % (3-13); SEGMENTED NEUTROPHILS % (MAN) 83 % (42-78); TOTAL CELLS COUNTED 100
[2018-12-09 08:23] LABS: CREATINE KINASE MB 0.36 ng/mL (<4.55)
[2018-12-09 08:24] LABS: PLATELET COMMENT ADEQUATE; RBC MORPHOLOGY COMMENT NORMO-CYTIC/CHROMIC; TOXIC GRANULATION 1+; TOXIC VACUOLATION PRESENT
[2018-12-09 08:26] LABS: TROPONIN I < 0.012 ng/mL
[2018-12-09 09:07] LABS: APPEARANCE,URINE CLOUDY; BILIRUBIN,URINE NEGATIVE (NEGATIVE); COLOR,URINE AMBER; GLUCOSE, URINE NEGATIVE (NEGATIVE); KETONES,URINE TRACE mg/dL (NEGATIVE); LEUKOCYTE ESTERASE,URINE SMALL (NEGATIVE); NITRITE,URINE POSITIVE (NEGATIVE); PROTEIN,URINE NEGATIVE (NEGATIVE); URINE SPECIFIC GRAVITY 1.018
[2018-12-09 09:12] LABS: ADD MANUAL MICROSCOPIC YES
[2018-12-09 09:14] LABS: BACTERIA,URINE 3+ /HPF
[2018-12-09 09:22] LABS: URINE AMPHETAMINES SCREEN UNCONFIRMED POSITIVE; URINE BARBITURATES SCREEN NEGATIVE; URINE BENZODIAZEPINES SCREEN NEGATIVE; URINE COCAINE SCREEN UNCONFIRMED POSITIVE; URINE MARIJUANA (THC) SCREEN NEGATIVE; URINE METHADONE SCREEN NEGATIVE; URINE PHENCYCLIDINE SCREEN NEGATIVE
[2018-12-09] MEDS ORDERED: CEFTRIAXONE 1 GM/D5W RTU 1 GM/50 ML RTUPB IV ONE (09:55)
[2018-12-09] MEDS ORDERED: ONDANSETRON ODT 4 MG TAB (6 TAB/ER DISP) PO PRN (10:53)
[2018-12-09] MEDS ORDERED: ONDANSETRON 4 MG TAB.RAPDIS PO ONE (10:53)
--- NOTE | 2018-12-14 07:46 | ER Document Report ---
Entered by KEDAR SANDOVAL SCRIBE 12/09/18 0619 Acting as scribe for:MARIAH QUINTERO MD ED General - General Chief Complaint: Chest Pain Stated Complaint: HEADACHE Time Seen by Provider: 12/09/18 06:07 Primary Care Provider: CARMEN MCRAE MD [Primary Care Provider] - Follow up as needed Notes: Patient is a 23-year-old female presenting to the emergency department via EMS for chest pain and headache. Patient injected heroin and cocaine last night. Patient started at around 1800 yesterday, the last time she injected heroin was at 0400. Patient states that she has been vomiting since last week, she has started having kidney pain when she started vomiting earlier today. 7 months ag o she was in the emergency department and stated she wanted to detox for heroin. Patient was in rehab a couple months ago, mother at bedside states "friend asked her to leave early". Patient has had a UTI for 2 days. Patient currently has hepatitis C. TRAVEL OUTSIDE OF THE [place] IN LAST 30 DAYS: No - Related Data Allergies/Adverse Reactions: latex Allergy (Mild, Verified 05/12/18 07:39) Hives methylphenidate [From Concerta] Allergy (Verified 05/12/18 07:39) Penicillins Allergy (Verified 05/12/18 07:39) sulfamethoxazole [From Bactrim] Allergy (Verified 05/12/18 07:39) trimethoprim [From Bactrim] Allergy (Verified 05/12/18 07:39) Past Medical History - General Information source: Patient - Social History Smoking Status: Current Every Day Smoker Cigarette use (# per day): Yes Frequency of alcohol use: Heavy Drug Abuse: Cocaine, Heroin Family History: Reviewed & Not Pertinent Pulmonary Medical History: Reports: Hx Asthma GI Medical History: Reports: Hx Crohn's Disease, Hx Ulcerative Colitis Psychiatric Medical History: Reports: Hx Anxiety, Hx Bipolar Disorder, Hx Depression Past Surgical History: Reports: Hx Adenoidectomy, Hx Oral Surgery - wisdom, Hx Tonsillectomy - Immunizations Immunizations up to date: Yes Hx Diphtheria, Pertussis, Tetanus Vaccination: Yes Review of Systems - Review of Systems Constitutional: No symptoms reported EENT: No symptoms reported Cardiovascular: See HPI, Chest pain Respiratory: No symptoms reported Gastrointestinal: See HPI, Vomiting Genitourinary: No symptoms reported Female Genitourinary: No symptoms reported Musculoskeletal: No symptoms reported Skin: No symptoms reported Hematologic/Lymphatic: No symptoms reported Neurological/Psychological: See HPI, Headaches -: Yes All other systems reviewed and negative Physical Exam - Vital signs Vitals: Temp Pulse Resp BP Pulse Ox 97.8 F 112 H 18 121/66 98 12/09/18 04:59 12/09/18 04:59 12/09/18 04:59 12/09/18 04:59 12/09/18 04:59 - Notes Notes: Physical Exam: General: Alert, nauseous, vomiting. HEENT: Headache feels "on the top of my head". normocephalic. Atraumatic. PERRL. Extraocular movements intact. Oropharynx clear. Neck: Posterior cervical musculature bilaterally tenderness to palpation. Respiratory: No respiratory distress. Clear and equal breath sounds bilaterally. Cardiovascular: Mild tachycardia. regular rhythm. Abdominal: Normal Inspection. Non-tender. No distension. Normal Bowel Sounds. Back: Non-tender. No deformity or step off. Extremities: Moves all four extremities. Upper extremities: There is old scarring suggesting track trinidad on the right radial antecubital fossa region. No fresh needle trinidad were identified. There is an IV placed in the left antecubital fossa and no fresh needle trinidad are seen around the IV. There are no areas suggesting cellulitis around either antecubital fossa region or at the wrists. Lower extremities: Normal inspection. No edema. Normal ROM. Neurological: Normal cognition. AAOx4. Normal speech. Psychological: Normal affect. Normal Mood. Skin: Warm. Dry. Normal color. Course - Vital Signs Vital signs: Temp Pulse Resp BP Pulse Ox 97.8 F 112 H 18 121/66 98 12/09/18 04:59 12/09/18 04:59 12/09/18 04:59 12/09/18 04:59 12/09/18 04:59 - Laboratory Result Diagrams: 12/09/18 07:46 12/09/18 07:46 Laboratory results interpreted by me: 12/09/18 12/09/18 12/09/18 07:46 07:46 08:50 Seg Neuts % (Manual) 83 H Band Neutrophils % 9 H Lymphocytes % (Manual) 8 L Monocytes % (Manual) 0 L Abs Monocytes (Manual) 0.0 L Potassium 3.3 L AST 44 H Albumin 3.4 L Urine Ketones TRACE H Urine Nitrite POSITIVE H Urine Urobilinogen 2.0 H Ur Leukocyte Esterase SMALL H Salicylates < 1.0 L Acetaminophen < 10 L - Diagnostic Test Radiology reviewed: Reports reviewed - CT scan of the head is unremarkable - EKG Interpretation by Me EKG shows normal: Sinus rhythm, Mar[place], Intervals, QRS Complexes, ST-T Waves Rate: Normal - 117 Rhythm: NSR Discharge - Discharge Clinical Impression: Polysubstance dependence including opioid type drug, episodic abuse, Cocaine abuse Urinary tract infection Qualifiers: Urinary tract infection type: acute cystitis Hematuria presence: with hematuria Qualified Code(s): N30.01 - Acute cystitis with hematuria Condition: Stable Disposition: HOME, SELF-CARE Additional Instructions: Cocaine Abuse Cocaine causes many dangerous medical problems. Problems can occur even with "usual" amounts. Cocaine affects judgement, creating a sense of invulnerability. Cocaine users often make bad decisions that seem "great" at the time. Most cocaine users eventually will be hurt by bad job performance, damaged personal relations, crime, and unsafe sexual practices. Toxic effects of cocaine can include seizures, hallucinations, delusions, high blood pressure, heart damage, or sudden . There's always the risk of a "bad batch." But heart attacks, brain hemorrhages, or cardiac arrest can occur unpredictably even with "normal" use. Injection of cocaine is risky for abscesses, endocarditis (heart infection), pneumonia, and AIDS. Withdrawal from cocaine often causes anxiety and drug cravings. Some users become paranoid and psychotic. Many treatment programs are available, but you must make the decision to quit. Medication can be prescribed to control the symptoms of cocaine toxicity (beta blockers or benzodiazepines). Withdrawal symptoms may require tranquilizers. Urinary Tract Infection Your evaluation indicates that you have a urinary tract infection. This is due to germs growing in the bladder. This is a common problem. This infection usually responds quickly to antibiotics. Your antibiotic should be taken exactly as prescribed. Drink plenty of fluids -- three to four quarts a day. Occasionally, a bladder anesthetic will be prescribed to help stop the feeling of urgency until the antibiotic has a chance to clear the infection. This may cause your urine to be dark orange. Certain urine infections require a culture. If the doctor obtained a culture, the results will be back in two days. You should call to see if a change in treatment is needed. A repeat urinalysis after you finish treatment is often recommended. The physician will let you know if further testing is required. Call the doctor if you develop fever, chills, flank pain, inability to urinate, or blood in the urine. Take the antibiotics as prescribed for your urine infection. Drink plenty of fluids throughout the day in the evening. Follow-up with a local medical doctor if not improving. Strongly consider going back into a rehab or detox facility. RETURN TO THE EMERGENCY ROOM IF ANY NEW OR WORSENING SYMPTOMS. (NO) Medical Clearance This evaluation in the Emergency Department at [facility] does not constitute, nor is it intended in any way to be, a "medical clearance" for admission to [facility] and/or [facility], or to [facility], or to any other psychiatric institution. The Emergency Department has the responsibility and the obligation to evaluate and treat and stabilize emergency medical conditions. This facility and its physician staff do not certify any patients as "medically clear". Responsibility for a patient's future medical problems and condition after discharge from the Emergency Department at [facility] will be the responsibility of the staff at [facility] and/or [facility] or of [facility], or of whichever other psychiatric institution to which the patient is transferred or admitted. The Emergency Department at [facility] always remains available to evaluate and treat any and all persons for emergency medical conditions at any time. Prescriptions: Doxycycline Hyclate 100 mg PO BID #14 tablet. Referrals: CARMEN MCRAE MD [Primary Care Provider] - Follow up as needed Scribe Attestation: 12/09/18 08:10 I personally performed the services described in the documentation, reviewed and edited the documentation which was dictated to the scribe in my presence, and it accurately records my words and actions. I personally performed the services described in the documentation, reviewed and edited the documentation which was dictated to the scribe in my presence, and it accurately records my words and actions.
== END 2018-12-09 10:56 | disposition home or self-care (01) ==
LOC: ER 04:50
DX: N30.01 Acute cystitis with hematuria (principal); F14.10 Cocaine abuse, uncomplicated; F11.20 Opioid dependence, uncomplicated; R07.9 Chest pain, unspecified; R51 Headache; R11.10 Vomiting, unspecified; B19.20 Unspecified viral hepatitis C without hepatic coma; F17.210 Nicotine dependence, cigarettes, uncomplicated; Z88.0 Allergy status to penicillin; Z88.3 Allergy status to other anti-infective agents; Z91.040 Latex allergy status
CPT/HCPCS: 93005; 99284; 96361; 96375; 96365; 36415; 87086; 82553; 80307 ×4; 82550; 84703; 85025; 87088; 80053; 81001; 84484; 87186; 70450; 93010; S0119; J2405; J7030; J0696

== ENCOUNTER 2019-11-13 10:52 | Emergency (ER) | payer MEDICAID ==
--- NOTE | 2019-11-13 11:27 | ER Document Report ---
ED Medical Screen (RME) - General Chief Complaint: Drug Abuse Stated Complaint: DRUG ABUSE Time Seen by Provider: 11/13/19 11:20 Primary Care Provider: CARMEN MCRAE MD [Primary Care Provider] - Follow up as needed Notes: Patient is a 24-year-old female presents emergency department with a chief complaint of drug abuse. Patient reports about 2 hours ago she injected a street pill that contains 30 mg of Percocet. Patient denies any other drug use. Patient reports 1 hour after injecting the medication she began to feel very cold, shaky and had a pain in the back of the neck. Patient reports she did have nausea with 1 episode of vomiting. Patient reports her symptoms have since resolved but now she feels generally weak. Patient denies chest pain. Patient reports she did take 2 shots of alcohol last night. Patient denies SI or HI. TRAVEL OUTSIDE OF THE [place] IN LAST 30 DAYS: No - Related Data Allergies/Adverse Reactions: latex Allergy (Mild, Verified 11/13/19 11:23) Hives methylphenidate [From Concerta] Allergy (Verified 11/13/19 11:23) Penicillins Allergy (Verified 11/13/19 11:23) sulfamethoxazole [From Bactrim] Allergy (Verified 11/13/19 11:23) trimethoprim [From Bactrim] Allergy (Verified 11/13/19 11:23) Past Medical History - Social History Chew tobacco use (# tins/day): No Frequency of alcohol use: Social Drug Abuse: Prescription drugs, Other Pulmonary Medical History: Reports: Hx Asthma Renal/ Medical History: Denies: Hx Peritoneal Dialysis GI Medical History: Reports: Hx Crohn's Disease, Hx Ulcerative Colitis Psychiatric Medical History: Reports: Hx Anxiety, Hx Bipolar Disorder, Hx Depression Past Surgical History: Reports: Hx Adenoidectomy, Hx Oral Surgery - wisdom, Hx Tonsillectomy - Immunizations Immunizations up to date: Yes Hx Diphtheria, Pertussis, Tetanus Vaccination: Yes Physical Exam - Vital signs Vitals: Temp Pulse Resp BP Pulse Ox 99.7 F 112 H 18 119/62 100 11/13/19 10:57 11/13/19 10:57 11/13/19 10:57 11/13/19 10:57 11/13/19 10:57 - Cardiovascular Rhythm: Tachycardia Heart sounds: Normal auscultation, S1 appreciated, S2 appreciated Course - Re-evaluation Re-evalutation: 11/13/19 11:26 I have greeted and performed a rapid initial assessment of this patient. A comprehensive ED assessment and evaluation of the patient, analysis of test results and completion of the medical decision making process will be conducted by additional ED providers. - Vital Signs Vital signs: Temp Pulse Resp BP Pulse Ox 99.7 F 112 H 18 119/62 100 11/13/19 11:21 11/13/19 10:57 11/13/19 10:57 11/13/19 10:57 11/13/19 10:57 Doctor's Discharge - Discharge Referrals: CARMEN MCRAE MD [Primary Care Provider] - Follow up as needed
[2019-11-13 11:48] LABS: ABSOLUTE LYMPHOCYTES (AUTO) 0.8 10^3/uL (0.5-4.7); ABSOLUTE MONOCYTES (AUTO) 0.1 10^3/uL (0.1-1.4); ABSOLUTE NEUT (AUTO) 7.7 10^3/uL (1.7-8.2); BASOPHILS % (AUTO) 0.4 % (0-2); EOSINOPHILS % (AUTO) 0.5 % (0-6); HEMATOCRIT 39.4 % (36.0-47.0); HEMOGLOBIN 13.5 g/dL (12.0-15.5); LYMPHOCYTES % (AUTO) 9.7 % (13-45); MEAN CORPUSCULAR HEMOGLOBIN 27.9 pg (27.0-33.4); MEAN CORPUSCULAR HGB CONC 34.4 g/dL (32.0-36.0); MEAN CORPUSCULAR VOLUME 81 fl (80-97); MONOCYTES % (AUTO) 1.2 % (3-13); PLATELET COUNT 370 10^3/uL (150-450); RED BLOOD COUNT 4.86 10^6/uL (3.72-5.28); SEGMENTED NEUTROPHILS % (AUTO) 88.2 % (42-78); TOTAL CELLS COUNTED % (AUTO) 100 %; WHITE BLOOD COUNT 8.7 10^3/uL (4.0-10.5)
[2019-11-13 11:52] LABS: APPEARANCE,URINE CLEAR; BILIRUBIN,URINE NEGATIVE (NEGATIVE); COLOR,URINE YELLOW; GLUCOSE, URINE NEGATIVE (NEGATIVE); KETONES,URINE 20 mg/dL (NEGATIVE); LEUKOCYTE ESTERASE,URINE NEGATIVE (NEGATIVE); NITRITE,URINE NEGATIVE (NEGATIVE); PROTEIN,URINE NEGATIVE (NEGATIVE); URINE SPECIFIC GRAVITY 1.023
[2019-11-13 12:06] LABS: URINE AMPHETAMINES SCREEN UNCONFIRMED POSITIVE; URINE BARBITURATES SCREEN UNCONFIRMED POSITIVE; URINE BENZODIAZEPINES SCREEN NEGATIVE; URINE COCAINE SCREEN NEGATIVE; URINE MARIJUANA (THC) SCREEN NEGATIVE; URINE METHADONE SCREEN NEGATIVE; URINE PHENCYCLIDINE SCREEN NEGATIVE
[2019-11-13 12:13] LABS: ALBUMIN 4.3 g/dL (3.5-5.0); ALKALINE PHOSPHATASE 97 U/L (38-126); ANION GAP 7 (5-19); ASPARTATE AMINO TRANSFERASE 26 U/L (14-36); BILIRUBIN,TOTAL 0.8 mg/dL (0.2-1.3); BLOOD UREA NITROGEN 15 mg/dL (7-20); CALCIUM 9.4 mg/dL (8.4-10.2); CARBON DIOXIDE 26 mmol/L (22-30); CHLORIDE 101 mmol/L (98-107); GLUCOSE 90 mg/dL (75-110); POTASSIUM 4.6 mmol/L (3.6-5.0)
--- NOTE | 2019-11-13 14:22 | EKG REPORT ---
SEVERITY:- BORDERLINE ECG - SINUS TACHYCARDIA NONSPECIFIC ST CHANGES IMPROVED FROM LAST EKG 12/09/18. : Confirmed by: Lucio Stokes MD 13-Nov-2019 14:22:06
--- NOTE | 2019-11-13 14:25 | RADIOLOGY REPORT (SQ) ---
EXAM DESCRIPTION: CHEST SINGLE VIEW IMAGES COMPLETED DATE/TIME: 11/13/2019 2:12 pm REASON FOR STUDY: TACHYCARDIA COMPARISON: None. EXAM PARAMETERS: NUMBER OF VIEWS: One view. TECHNIQUE: Single frontal radiographic view of the chest acquired. RADIATION DOSE: NA LIMITATIONS: None. FINDINGS: LUNGS AND PLEURA: No opacities, masses or pneumothorax. No pleural effusion. MEDIASTINUM AND HILAR STRUCTURES: No masses. Contour normal. HEART AND VASCULAR STRUCTURES: Heart normal in size. Normal vasculature. BONES: No acute findings. HARDWARE: None in the chest. OTHER: No other significant finding. IMPRESSION: NO ACUTE RADIOGRAPHIC FINDING IN THE CHEST. TECHNICAL DOCUMENTATION: JOB ID: [id number] 2010 [employer]- All Rights Reserved Reading location - IP/workstation name: [email or web address]
--- NOTE | 2019-11-13 14:41 | ER Document Report ---
Entered by GUILLERMO FITZPATRICK SCRIBE 11/13/19 1237 Acting as scribe for:HARRIET GONZALEZ MD ED General - General Chief Complaint: Drug Abuse Stated Complaint: DRUG ABUSE Time Seen by Provider: 11/13/19 11:20 Primary Care Provider: CARMEN MCRAE MD [NO LOCAL MD] - Follow up as needed Information source: Patient Notes: This 24 year old female patient presents to the emergency department today with symptoms after drub abuse. 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 Patient states after x1 hour she vomited x1 and denies blood being present. Patient states she felt cold, nauseous, and pain in the back of her neck. Denies diarrhea, states her symptoms lasted x1 hour, and are no longer present. Patient states she has used these drugs before without any symptoms afterwards. Patient states she also does heroine and did methamphetamine yesterday. Patient states she recently left rehab and has applied to go back by the end of the month. Denies any homicidal or suicidal ideation. TRAVEL OUTSIDE OF THE [place] IN LAST 30 DAYS: No - Related Data Allergies/Adverse Reactions: latex Allergy (Mild, Verified 11/13/19 11:23) Hives methylphenidate [From Concerta] Allergy (Verified 11/13/19 11:23) Penicillins Allergy (Verified 11/13/19 11:23) sulfamethoxazole [From Bactrim] Allergy (Verified 11/13/19 11:23) trimethoprim [From Bactrim] Allergy (Verified 11/13/19 11:23) Past Medical History - General Information source: Patient - Social History Smoking Status: Current Every Day Smoker Cigarette use (# per day): Yes Chew tobacco use (# tins/day): No Frequency of alcohol use: Social Drug Abuse: Prescription drugs Lives with: Family Family History: Reviewed & Not Pertinent Pulmonary Medical History: Reports: Hx Asthma GI Medical History: Reports: Hx Crohn's Disease, Hx Ulcerative Colitis Psychiatric Medical History: Reports: Hx Anxiety, Hx Bipolar Disorder, Hx Depression Past Surgical History: Reports: Hx Adenoidectomy, Hx Oral Surgery - wisdom, Hx Tonsillectomy - Immunizations Immunizations up to date: Yes Hx Diphtheria, Pertussis, Tetanus Vaccination: Yes Review of Systems - Review of Systems Constitutional: See HPI EENT: No symptoms reported Cardiovascular: No symptoms reported Respiratory: No symptoms reported Gastrointestinal: See HPI, Nausea, Vomiting - x1. denies: Diarrhea Genitourinary: No symptoms reported Female Genitourinary: No symptoms reported Musculoskeletal: See HPI, Neck pain - back of neck Skin: No symptoms reported Hematologic/Lymphatic: No symptoms reported Neurological/Psychological: No symptoms reported. denies: Homicidal ideation, Suicidal ideation -: Yes All other systems reviewed and negative Physical Exam - Vital signs Vitals: Temp Pulse Resp BP Pulse Ox 99.7 F 112 H 18 119/62 100 11/13/19 10:57 11/13/19 10:57 11/13/19 10:57 11/13/19 10:57 11/13/19 10:57 - General General appearance: Appears well, Alert - HEENT Head: Normocephalic, Atraumatic Eyes: Normal Pupils: PERRL Neck: Normal - Respiratory Respiratory status: No respiratory distress Chest status: Nontender Breath sounds: Normal Chest palpation: Normal - Cardiovascular Rhythm: Regular Heart sounds: Normal auscultation Murmur: No - Abdominal Inspection: Normal Distension: No distension Bowel sounds: Normal Tenderness: Nontender - Extremities General upper extremity: No: Edema General lower extremity: Normal inspection. No: Edema Notes: Track trinidad present on the antecubital region of the right arm. - Neurological Neuro grossly intact: Yes Cognition: Normal Orientation: AAOx4 Speech: Normal - Psychological Associated symptoms: Normal affect, Normal mood - Skin Skin Temperature: Warm Skin Moisture: Dry Skin Color: Normal Course - Re-evaluation Re-evalutation: 11/13/19 13:56 Patient resting comfortably. 11/13/19 13:59 Patient is medically cleared to be placed in a rehab facility either inpatient or outpatient. Outstanding chest x-ray pending. - Vital Signs Vital signs: Temp Pulse Resp BP Pulse Ox 99.7 F 84 16 113/64 100 11/13/19 11:21 11/13/19 13:35 11/13/19 13:35 11/13/19 13:35 11/13/19 13:35 11/13/19 13:56 Vital signs stable afebrile no tachycardia pulse ox 100% and blood pressures within normal range 113/64. - Laboratory Result Diagrams: 11/13/19 11:35 11/13/19 11:35 Laboratory results interpreted by me: 11/13/19 11/13/19 11/13/19 11:35 11:35 11:35 RDW 15.0 H Lymph % (Auto) 9.7 L [place] % (Auto) 1.2 L Seg Neutrophils % 88.2 H Sodium 133.8 L Urine Ketones 20 H Urine Urobilinogen 2.0 H 11/13/19 13:57 Labs within normal limits except patient does show urine drug screen positive for opiates barbiturates and amphetamines - Diagnostic Test Radiology reviewed: Image reviewed, Reports reviewed Radiology results interpreted by me: 11/13/19 14:40 Chest x-ray shows no acute process. - EKG Interpretation by Me Additional EKG results interpreted by me: 11/13/19 13:58 Twelve-lead EKG shows sinus tachycardia rate of 113 no acute process. Discharge - Discharge Clinical Impression: Polysubstance dependence including opioid type drug, episodic abuse, with perceptual disturbance Condition: Stable Disposition: PSYCH HOSP/UNIT Referrals: CARMEN MCRAE MD [NO LOCAL MD] - Follow up as needed I personally performed the services described in the documentation, reviewed and edited the documentation which was dictated to the scribe in my presence, and it accurately records my words and actions.
[2019-11-13 16:07] VITALS: BP 115/60
== END 2019-11-13 16:22 | disposition home or self-care (01) ==
LOC: ER 10:52
DX: F19.10 Other psychoactive substance abuse, uncomplicated (principal); F11.10 Opioid abuse, uncomplicated; R11.2 Nausea with vomiting, unspecified; F17.210 Nicotine dependence, cigarettes, uncomplicated; J45.909 Unspecified asthma, uncomplicated; Z88.0 Allergy status to penicillin; Z88.2 Allergy status to sulfonamides; Z88.8 Allergy status to other drugs, medicaments and biological substances
CPT/HCPCS: 36415; 71045; 80053; 80307; 81001; 85025; 93005; 93010; 99284